=== PATIENT | female | born 1965 | race Caucasian/White ===

== ENCOUNTER → 2016-10-20 | Day surgery (SDC) | payer OTHER ==
[2016-10-13 13:44] VITALS: Ht 179.1 cm; Wt 140.9 kg
[~2016-10-20] VITALS: Ht 179.1 cm; Wt 140.9 kg
[~2016-10-20] MED LIST: LIDOCAINE HCL 2% 2 ML VIAL (20MG/ML) ONE; MELA1TAB5 PO; MIDAZOLAM HCL 1 MG/ML 2ML VIAL ONE; PROPOFOL IV EMULSION 10 MG/ML 20 ML VIAL IV ONE; SODIUM CHLORIDE 0.9% 500ML 500 ML IV ONE; TRAZ50TA35 PO
--- NOTE | 2016-10-20 09:49 | Endo History and Physical ---
History & Physical Date of Service: Oct 20, 2016. Chief Complaint: history of polyps Referring Physician: Dr. Ryan Ferro History of Present Illness History of serrated adenoma removed piecemeal. Past Medical History Other Past Surgical History Hx Cardiac Surgery: No Hx Internal Defibrillator: No Hx Pacemaker: No Hx Abdominal Surgery: Yes (ZAHRA, JOANNE, GASTRIC BYPASS) Hx of Implantable Prosthesis: No Hx Post-Op Nausea and Vomiting: No Hx Cancer Surgery: No Hx Thoracic Surgery: No Hx Orthopedic: No Hx Urinary Tract Surgery: No Family History None Social History Smoking Status: Current Some Day Smoker Hx Substance Use: No Hx Alcohol Use: Yes (OCCASSIONALLY) Allergies Coded Allergies: Aspirin (Verified Allergy, Mild, BLEEDING,STOMACH PAINS, 10/13/16) Meperidine (Verified Adverse Reaction, Unknown, SEVERE N/V, 10/13/16) Current Medications Reported Home Medications Medications Dose Route/Sig Max Daily Dose Days Date Category Kp Melatonin (Melatonin) 3 Mg Tab 1 Tab PO HS PRN 30 10/20/16 Reported Trazodone (Trazodone HCl) 50 Mg Tab 50 Mg PO HS 10/13/16 Reported Vital Signs Weight (Kilograms): 140.91 Height (Feet): 5 Height (Inches): 10.5 Date Time Temp Pulse Resp B/P Pulse Ox O2 Delivery O2 Flow Rate FiO2 10/20/16 09:27 121/59 10/20/16 09:22 36.8 66 20 182/80 97 Room Air Physical Exam General Appearance: WD/WN, no apparent distress, + obese Respiratory/Chest: Auscultation: breath sounds normal, no rales/crackles Cardiovascular: Heart Auscultation: RRR, no murmurs Abdomen: Inspection & Palpation: soft, no tenderness, guarding & rebound Assessment and Plan Colonoscopy today.
--- NOTE | 2016-10-20 10:22 | GI REPORT ---
Procedure Date: 10/20/2016 9:34 AM Procedure: Colonoscopy Indications: High risk colon cancer surveillance: Personal history of sessile serrated colon polyp (10 mm or greater in size), Last colonoscopy: May 2015 Medicines: Monitored Anesthesia Care Complications: No immediate complications. Estimated blood loss: None. Estimated Blood Loss: Estimated blood loss: none. Procedure: Pre-Anesthesia Assessment: - Prior to the procedure, a History and Physical was performed, and patient medications, allergies and sensitivities were reviewed. The patient's tolerance of previous anesthesia was reviewed. - ASA Grade Assessment: III - A patient with severe systemic disease. After I obtained informed consent, the scope was passed under direct vision. Throughout the procedure, the patient's blood pressure, pulse, and oxygen saturations were monitored continuously. The scope was introduced through the anus and advanced to the terminal ileum, with identification of the appendiceal orifice and IC valve. The colonoscopy was performed with ease. The patient tolerated the procedure well. The quality of the bowel preparation was good. The bowel preparation used was split dose MIralax. Findings: A 2 mm polyp was found in the cecum. The polyp was sessile. The polyp was removed with a cold snare. Resection and retrieval were complete. A 3 mm polyp was found in the transverse colon. The polyp was sessile. The polyp was removed with a cold snare. Resection and retrieval were complete. A 2 mm polyp was found in the sigmoid colon. The polyp was sessile. The polyp was removed with a cold snare. Resection and retrieval were complete. A tattoo was seen in the transverse colon. A post-polypectomy scar was found at the tattoo site. Verification of patient identification for the specimens was done by the physician and nurse using the patient's name, date and medical record number. Impression: - One 2 mm polyp in the cecum, removed with a cold snare. Resected and retrieved. - One 3 mm polyp in the transverse colon, removed with a cold snare. Resected and retrieved. - One 2 mm polyp in the sigmoid colon, removed with a cold snare. Resected and retrieved. - A tattoo was seen in the transverse colon. A post-polypectomy scar was found at the tattoo site. - The colon was otherwise normal to the terminal ileum with retroflexed views of the colon and terminal ileum. Recommendation: - Repeat colonoscopy in 3 years for surveillance based on pathology results. - Discharge patient to home (with escort). Octavio Saha M.D. Octavio Saha MD 10/20/2016 10:22:51 AM This report has been signed electronically. Note Initiated On: 10/20/2016 9:34 AM I attest to the content of the Intraoperative Record and orders documented therein, exceptions below
--- NOTE | 2016-10-20 10:24 | Discharge Instructions ---
Endoscopy Patient Instructions Date / Procedure(s) Performed Oct 20, 2016. Colonoscopy Allergy Information Coded Allergies: Aspirin (Verified Allergy, Mild, BLEEDING,STOMACH PAINS, 10/13/16) Meperidine (Verified Adverse Reaction, Unknown, SEVERE N/V, 10/13/16) Discharge Date / Findings Oct 20, 2016. Small colon polyps removed (3) Medication Instructions Restart Stopped Medication(s): Resume all medications Provider Instructions Activity Restrictions - No exercising or heavy lifting for 24 hours. - Do not drink alcohol the day of the procedure. - Do not drive a car or operate machinery until the day after the procedure. - Do not make any important decisions or sign important papers in 24 hours after the procedure. Following Day: - Return to full activity which may include returning to work/school. Diet Start your diet with liquids and light foods (jello, soup, juice, toast). Then eat your usual diet if not nauseated. Treatment For Common After Affects For mild abdominal pain, bloating, or excessive gas: - Rest - Eat lightly - Lie on right side Follow-Up Information Follow-up with Dr. Ryan Ferro as scheduled Anesthesia Information What You Should Know You have had a procedure that required some medicine to reduce anxiety and discomfort. This treatment is called moderate sedation. After receiving the treatment, you may be sleepy, but you will be able to breathe on your own. The effects of the treatment may last for several hours. Follow these instructions along with Activity/Diet recommendations noted above: * Do NOT do anything where dizziness or clumsiness would be dangerous. * Rest quietly at home today, then you can be up and about tomorrow. * Have a responsible person stay with you the rest of today. * You may have had an I.V. today. If so, you may take the dressing off later today. Recommendations Call your doctor if: * Trouble breathing * Continuous vomiting for more than 24 hours * Temperature above 101 degrees * Severe abdominal pain or bloating * Pain not relieved by pain medicine ordered * There is increased drainage or redness from any incision * A large amount of rectal bleeding greater than 2-3 tablespoons. (If you had a polyp/s removed or have hemorrhoids, a small amount of blood - from the rectum is to be expected.) * You have any unanswered questions or concerns. IN THE EVENT OF A SERIOUS EMERGENCY, GO TO THE NEAREST EMERGENCY ROOM Your discharge instructions were prepared by provider Octavio Saha. Patient Instructions Signature Page Linda Barrera Patient (or Guardian) Signature/Date: I have read and understand the instructions given to me by my caregivers. Caregiver/RN/Doctor Signature/Date: The above-named patient and/or guardian has received patient instructions on this date. + Original Patient Signature Page (only) stays with chart. Please make copy for patient.
--- NOTE | 2016-10-20 10:52 | Anesthesiology Progress Note ---
Anesthesia Post Op Note Date & Time Oct 20, 2016 at 10:52 Vital Signs Pain Intensity: 0 Vital Signs Past 12 Hours Date Time Temp Pulse Resp B/P Pulse Ox O2 Delivery O2 Flow Rate FiO2 10/20/16 10:38 58 20 104/61 97 Room Air 10/20/16 10:25 65 20 99/58 97 Room Air 10/20/16 09:27 121/59 10/20/16 09:22 36.8 66 20 182/80 97 Room Air Notes Mental Status: alert / awake / arousable, participated in evaluation Pt Amnestic to Procedure: Yes Nausea / Vomiting: adequately controlled Pain: adequately controlled Airway Patency, RR, SpO2: stable & adequate BP & HR: stable & adequate Hydration State: stable & adequate Anesthetic Complications: no major complications apparent
[2016-10-20 10:57] VITALS: BP 142/58; PULSE 54; O2SAT 98
== END | disposition home or self-care (01) ==
LOC: C.GI 08:43
PROVIDERS: ATTEND Internal Medicine Gastroenterology
DX: Z12.11 Encounter for screening for malignant neoplasm of colon (principal); Z86.010 Personal history of colon polyps; D12.0 Benign neoplasm of cecum; D12.3 Benign neoplasm of transverse colon; D12.5 Benign neoplasm of sigmoid colon; Z98.84 Bariatric surgery status; Z98.890 Other specified postprocedural states; F17.210 Nicotine dependence, cigarettes, uncomplicated; Z88.8 Allergy status to other drugs, medicaments and biological substances

== ENCOUNTER 2017-07-30 11:11 | Inpatient (IN) | payer OTHER ==
[~2017-07-30] VITALS: Ht 180.3 cm; Wt 149.9 kg
[~2017-07-30 11:11] MED LIST changes: -LIDOCAINE HCL 2% 2 ML VIAL (20MG/ML) ONE; -MIDAZOLAM HCL 1 MG/ML 2ML VIAL ONE; -PROPOFOL IV EMULSION 10 MG/ML 20 ML VIAL IV ONE; -SODIUM CHLORIDE 0.9% 500ML 500 ML IV ONE
[2017-07-30] MEDS ORDERED: MULT-506 PO (11:40)
[2017-07-30] MEDS ORDERED: GLUC10007 PO (11:40)
[2017-07-30 11:46] LABS: BASO % 0.2 %; BASO ABS # 0.02 K/uL (0-0.2); COMPLETE YES; EOS % 1.1 %; HEMATOCRIT 28.2 % (37-47); IG% 0.4 %; LYMPH % 17.4 %; LYMPH ABS # 1.49 K/uL (1.2-3.4); MEAN CELL VOLUME 93.1 fL (80-100); MEAN CORPUSCULAR HGB CONC 32.3 g/dl (32-36); MEAN PLATELET VOLUME 10.7 fL (7.4-10.4); MONO % 6.2 %; NEUT % 74.7 %; PLATELET COUNT 260 K/uL (130-400); RED BLOOD COUNT 3.03 M/uL (4.2-5.4); WHITE BLOOD COUNT 8.55 K/uL (4.8-10.8)
[2017-07-30] MEDS ORDERED: PANTOprazole INJ 40 MG in SYRINGE 0 ML IV ONE (12:00)
[2017-07-30 12:09] LABS: PARTIAL THROMBOPLASTIN RATIO 1.1; PROTHROMBIN TIME (PATIENT) 10.5 SECONDS (9.0-12.0)
--- NOTE | 2017-07-30 12:14 | History and Physical ---
History & Physical Date & Time of Service: Jul 30, 2017 at 12:14 Chief Complaint: Black Stool, Stomach Pain/Burning, Weak, Dizzy, N Primary Care Physician: Ryan Ferro M.D. History of Present Illness Source: patient Patient is a 52 yr female with PMH of Gastrojejunal Ulcer disease, colon Polys, Obesity S/P gastric Bypass, Insomnia, Seasonal allergies and other problems presents with history of black tarry stools since Tuesday. Reports having 1-2 BMs which are dark but denies any bright red blood or diarrhea. Reports associated Epigastric abdominal pain which is 5/10, non radiating, burning like , which worsens with food intake and temporarily improves with cold water intake. She recently had flu like symptoms and admits to take over the counter NSAIDs.She tried gaviscon and rolaids which did not relive her symptoms. She was previously on PPI but currently off them. Also reports some dizziness with ambulation. Currently denies any chest pain, SOB, nausea, vomiting, headache, dysuria, fever, chills. No history of being on blood thinners, aspirin. Reports that she follows with solar design engineer and gets colonoscopy as she had colonic polyps. Past Medical/Surgical History Medical Problems: (1) Anxiety Status: Chronic (2) Gastrointestinal ulcer Status: Resolved (3) GI bleed Status: Resolved (4) Osteoarthritis Status: Chronic Surgical Problems: (1) Gastric bypass status for obesity Status: Resolved Family History Mother:: DM II, Dementia Father: DM II Social History Smoking Status: Former Smoker (quit 2013) Alcohol Use: socially Drug Use: none Immunizations History of Influenza Vaccine: No History of Tetanus Vaccine?: Yes Tetanus Immunization Date: Apr 20, 2005 History of Pneumococcal: No History of Hepatitis B Vaccine: Yes Multi-Drug Resistant Organisms History of MDRO: No Allergies Coded Allergies: Aspirin (Verified Allergy, Mild, BLEEDING,STOMACH PAINS, 10/13/16) Meperidine (Verified Adverse Reaction, Unknown, SEVERE N/V, 10/13/16) Home Medications Scheduled Glucosamine Sulfate (Glucosamine), 1,000 MG PO DAILY Multivitamin (Multivitamin), 1 TAB PO DAILY Trazodone Hcl (Trazodone), 50 MG PO HS Review of Systems See HPI for pertinent positives & negatives. A total of 10 systems reviewed and were otherwise negative. Physical Exam Vital Signs Date Time Temp Pulse Resp B/P (MAP) Pulse Ox O2 Delivery O2 Flow Rate FiO2 07/30/17 11:38 82 07/30/17 11:30 97 Room Air 07/30/17 11:15 36.7 88 18 118/69 97 Room Air General Appearance: no apparent distress, + obese Head: normocephalic, atraumatic Eyes: normal inspection, PERRL, EOMI, sclerae normal ENT: normal ENT inspection, hearing grossly normal Neck: supple, trachea midline Respiratory/Chest: chest non-tender, lungs clear, normal breath sounds, no respiratory distress, no accessory muscle use Cardiovascular: regular rate, rhythm, no edema, no murmur Abdomen/GI: normal bowel sounds, soft, + tenderness (Epigastric region), + pertinent finding (Obese, Surgical scars on abdomen noted) Back: normal inspection, + pertinent finding (Lower back mild tender) Extremities/Musculoskelatal: normal inspection, no pedal edema Neurologic/Psych: mainframe analyst II-XII nml as tested, no motor/sensory deficits, alert, normal mood/affect, oriented x 3 Skin: normal color, warm/dry Diagnostics Laboratory Results Results Past 24 Hours Test 07/30/17 11:27 Range/Units White Blood Count 8.55 4.8-10.8 K/uL Red Blood Count 3.03 4.2-5.4 M/uL Hemoglobin 9.1 12.0-16.0 g/dL Hematocrit 28.2 37-47 % Mean Corpuscular Volume 93.1 80-100 fL Mean Corpuscular Hemoglobin 30.0 25-34 pg Mean Corpuscular Hemoglobin Concent 32.3 32-36 g/dl Platelet Count 260 130-400 K/uL Mean Platelet Volume 10.7 7.4-10.4 fL Neutrophils (%) (Auto) 74.7 % Lymphocytes (%) (Auto) 17.4 % Monocytes (%) (Auto) 6.2 % Eosinophils (%) (Auto) 1.1 % Basophils (%) (Auto) 0.2 % Neutrophils # (Auto) 6.39 1.4-6.5 K/uL Lymphocytes # (Auto) 1.49 1.2-3.4 K/uL Monocytes # (Auto) 0.53 0.11-0.59 K/uL Eosinophils # (Auto) 0.09 0-0.5 K/uL Basophils # (Auto) 0.02 0-0.2 K/uL RDW Standard Deviation 48.0 36.4-46.3 fL RDW Coefficient of Variation 14.3 11.5-14.5 % Immature Granulocyte % (Auto) 0.4 % Immature Granulocyte # (Auto) 0.03 0.00-0.02 K/uL Prothrombin Time 10.5 9.0-12.0 SECONDS Prothromb Time International Ratio 1.0 0.9-1.1 Activated Partial Thromboplast Time 28.1 21.0-31.0 SECONDS Partial Thromboplastin Ratio 1.[address] ABD: pending Impression Assessment and Plan Upper GI bleeding: Presented with melena and epigastric abd pain, Hb:9.1 H/O Jejunal Ulcer, Colonic Polys Recent NSAIDs use Start on Protonix ggt IV fluids NPO for now Monitor H&H, transfuse PRBCs PRN pain control check CT ABD Lipase mildly elevated GI consulted Avoid NSAIDs, Aspirin Obesity S/P gastric Bypass BMI: 44.9 Insomnia: Hold Trazodone for now Seasonal allergies Stable DVT Px: SCDs: Re: Melena Code Status: Full Code Disposition: Monitor in Tele
[2017-07-30 12:15] LABS: CALCIUM 8.6 mg/dl (8.5-10.1); CREATININE 0.57 mg/dl (0.60-1.20); POTASSIUM 3.9 mmol/L (3.5-5.1)
--- NOTE | 2017-07-30 12:16 | EMERGENCY ROOM VISIT NOTE ---
History Report prepared by Abdoul: Danis Diego Under the Supervision of: Dr. Octavio Dee D.O. First contact with patient: 11:42 Chief Complaint: GI ASSESSMENT Stated Complaint: BLACK STOOL, STOMACH PAIN/BURNING, WEAK, DIZZY, N Nursing Triage Summary: Pt reports hx of GI bleed 7 yrs ago. Black stools for a couple days that became tarry today. Denies use of blood thinners. States she also has burning in her stomach. Pt reports dizziness/lightheadedness, SOB and tired. History of Present Illness The patient is a 52 year old female who presents to the Emergency Room with complaints of persistent "black, tarry" stool beginning three days ago. She also complains of abdominal pain, generalized weakness, and dizziness. She saw her PCP today for her symptoms, and was referred to the ED. The patient has a history of GI ulcers. Her most recent GI bleed was 7 years ago. Her most recent colonoscopy was 7 years ago as well. The patient is not on any blood thinning medication. She has a history of gastric bypass. She denies any leg swelling. Source of History: patient Onset: Three days ago Quality: other ("black, tarry" stool) Timing: other (persistent) Associated Symptoms: + abdominal pain, + weakness (generalized) Note: Additional symptoms: dizziness. The patient denies any leg swelling. Review of Systems See HPI for pertinent positives & negatives. A total of 10 systems reviewed and were otherwise negative. Past Medical & Surgical Medical Problems: (1) Anxiety (2) Gastrointestinal ulcer (3) GI bleed (4) Melena (5) Osteoarthritis Surgical Problems: (1) Gastric bypass status for obesity Family History No pertinent family history stated. Social History Smoking Status: Never Smoker Marital Status: Housing Status: lives with family Current/Historical Medications Scheduled Glucosamine Sulfate (Glucosamine), 1,000 MG PO DAILY Multivitamin (Multivitamin), 1 TAB PO DAILY Trazodone Hcl (Trazodone), 50 MG PO HS Allergies Coded Allergies: Aspirin (Verified Allergy, Mild, BLEEDING,STOMACH PAINS, 10/13/16) Meperidine (Verified Adverse Reaction, Unknown, SEVERE N/V, 10/13/16) Physical Exam Vital Signs Date Time Temp Pulse Resp B/P (MAP) Pulse Ox O2 Delivery O2 Flow Rate FiO2 07/30/17 12:26 72 18 131/55 98 Room Air 07/30/17 11:38 82 07/30/17 11:30 97 Room Air 07/30/17 11:15 36.7 88 18 118/69 97 Room Air Physical Exam GENERAL: Patient is awake, alert, and in no acute distress. Patient is resting comfortably and showing no signs of anxiety EYES: The conjunctivae are clear. The pupils are round and reactive. EARS, NOSE, MOUTH AND THROAT: The nose is without any evidence of any deformity. Mucous membranes are moist tongue is midline NECK: The neck is nontender and supple. RESPIRATORY: Normal respiratory effort is noted there is no evidence of wheezing rhonchi or rales CARDIOVASCULAR: Tachycardic but regular. No definite murmurs to auscultation. GASTROINTESTINAL: The abdomen is mildly distended, but soft. Epigastric tenderness to palpation. No guarding or rigidity. RECTAL: Black, heme positive stool. MUSCULOSKELETAL/EXTREMITIES: There is no evidence of gross deformity full range of motion is noted in the hips and shoulders SKIN: There is no obvious evidence of any rash. There are no petechiae, pallor or cyanosis noted. NEUROLOGIC: Patient is awake alert and oriented x3. Medical Decision & Procedures Laboratory Results 07/30/17 11:27 Red Blood Count 3.03, Mean Corpuscular Volume 93.1, Mean Corpuscular Hemoglobin 30.0, Mean Corpuscular Hemoglobin Concent 32.3, Mean Platelet Volume 10.7, Neutrophils (%) (Auto) 74.7, Lymphocytes (%) (Auto) 17.4, Monocytes (%) (Auto) 6.2, Eosinophils (%) (Auto) 1.1, Basophils (%) (Auto) 0.2, Neutrophils # (Auto) 6.39, Lymphocytes # (Auto) 1.49, Monocytes # (Auto) 0.53, Eosinophils # (Auto) 0.09, Basophils # (Auto) 0.02 07/30/17 11:27 Test 07/30/17 11:27 White Blood Count 8.55 K/uL (4.8-10.8) Red Blood Count 3.03 M/uL (4.2-5.4) Hemoglobin 9.1 g/dL (12.0-16.0) Hematocrit 28.2 % (37-47) Mean Corpuscular Volume 93.1 fL (80-100) Mean Corpuscular Hemoglobin 30.0 pg (25-34) Mean Corpuscular Hemoglobin Concent 32.3 g/dl (32-36) Platelet Count 260 K/uL (130-400) Mean Platelet Volume 10.7 fL (7.4-10.4) Neutrophils (%) (Auto) 74.7 % Lymphocytes (%) (Auto) 17.4 % Monocytes (%) (Auto) 6.2 % Eosinophils (%) (Auto) 1.1 % Basophils (%) (Auto) 0.2 % Neutrophils # (Auto) 6.39 K/uL (1.4-6.5) Lymphocytes # (Auto) 1.49 K/uL (1.2-3.4) Monocytes # (Auto) 0.53 K/uL (0.11-0.59) Eosinophils # (Auto) 0.09 K/uL (0-0.5) Basophils # (Auto) 0.02 K/uL (0-0.2) RDW Standard Deviation 48.0 fL (36.4-46.3) RDW Coefficient of Variation 14.3 % (11.5-14.5) Immature Granulocyte % (Auto) 0.4 % Immature Granulocyte # (Auto) 0.03 K/uL (0.00-0.02) Prothrombin Time 10.5 SECONDS (9.0-12.0) Prothromb Time International Ratio 1.0 (0.9-1.1) Activated Partial Thromboplast Time 28.1 SECONDS (21.0-31.0) Partial Thromboplastin Ratio 1.1 Anion Gap 6.0 mmol/L (3-11) Est Creatinine Clear Calc Drug Dose 183.7 ml/min Estimated GFR () 123.5 Estimated GFR (Non- 106.6 BUN/Creatinine Ratio 42.0 (10-20) Calcium Level 8.6 mg/dl (8.5-10.1) Total Bilirubin 0.5 mg/dl (0.2-1) Aspartate Amino Transf (AST/SGOT) 13 U/L (15-37) Alanine Aminotransferase (ALT/SGPT) 21 U/L (12-78) Alkaline Phosphatase 103 U/L (45-117) Total Protein 6.9 gm/dl (6.4-8.2) Albumin 3.2 gm/dl (3.4-5.0) Globulin 3.7 gm/dl (2.5-4.0) Albumin/Globulin Ratio 0.9 (0.9-2) Lipase 423 U/L (73-393) Laboratory results per my review. Medications Administered Medications (Trade) Dose Ordered Sig/Jeri Route Start Time Stop Time Status Last Admin Dose Admin Pantoprazole Sodium 40 mg/ Syringe 10 ml @ 5 mls/min NOW ONCE IV 07/30/17 12:00 07/30/17 12:01 DC 07/30/17 12:27 5 MLS/MIN ED Course 1148: The patient was evaluated in room A12B. A complete history and physical examination were performed. 1200: Ordered Pantoprazole Sodium 40 mg/Syringe 10 mL @ 5 mL/min IV. 1215: Upon reevaluation, the patient is resting comfortably. I discussed results and treatment plan with her. She verbalizes agreement and understanding. I spoke with Dr. Pina of [facility]. The patient will be evaluated for further management and care. Medical Decision Differential diagnosis: Etiologies such as diverticulosis, AVM, coagulopathy, colitis, inflammatory bowel disease, malignancy, Sherrie-Ann tear, esophagitis, peptic ulcer disease , variceal bleed, gastritis, epistaxis, fissure, hemorrhoids, as well as others were entertained. Nursing notes reviewed. The patient is a 52-year-old female who presented to the emergency apartment for an evaluation of generalized weakness and dark stools. The patient has noted that her stool has become dark and she's been having problems with generalized weakness. Her stool was heme positive. She has a history of duodenal ulcer in the past. The patient was treated with Protonix in the emergency department. I discussed the patient's laboratory studies with her. I discussed her case with the on-call [facility] hospitalist. They have agreed to evaluate the patient in the emergency apartment for further management and disposition. Medication Reconcilliation Current Medication List: was personally reviewed by me Blood Pressure Screening Patient's blood pressure: Normal blood pressure Blood pressure disposition: Did not require urgent referral Consults Time Called: 1205 [facility] Phys[facility] Returned Call: 1211 I discussed the patient's case with Dr. Pina. The patient will be evaluated for further management. Impression Primary Impression: Upper GI bleed Scribe Attestation The scribe's documentation has been prepared under my direction and personally reviewed by me in its entirety. I confirm that the note above accurately reflects all work, treatment, procedures, and medical decision making performed by me. Departure Information Dispostion Being Evaluated By Hospitalist Ryan Sarmiento M.D. (PCP) Patient Instructions [facility]
[2017-07-30 12:18] LABS: ALB/GLOB RATIO 0.9 (0.9-2)
[2017-07-30 13:15] VITALS: O2SAT 98; Ht 180.3 cm; Wt 149.9 kg
[2017-07-30] MEDS ORDERED: ONDANSETRON INJ 2 MG/ML 2 ML VIAL IV PRN (13:15)
[2017-07-30] MEDS ORDERED: PANTOprazole INJ 40 MG in DEXTROSE 5% 100ML IV SCH (13:45)
[2017-07-30 14:00] VITALS: BP 124/76; PULSE 98; TEMP 36.4; O2SAT 98
[2017-07-30] MEDS: SODIUM CHLORIDE 0.9% 1000ML 1,000 ML IV SCH ×2 (14:22→23:19)
[2017-07-30 15:14] VITALS: BP 96/46; PULSE 80; TEMP 36.4; O2SAT 100
[2017-07-30] MEDS ORDERED: INFLUENZA VIRUS QUAD VACCINE 0.5 ML SYR IM. ONE (16:00)
[2017-07-30] MEDS ORDERED: INFLUENZA ADMINISTRATION CHARGE ONE (16:00)
[2017-07-30 16:39] LABS: URINE APPEARANCE CLEAR (CLEAR); URINE BILIRUBIN NEG (NEG); URINE COLOR YELLOW; URINE NITRITE NEG (NEG); URINE SPECIFIC GRAVITY 1.029 (1.000-1.030); UROBILINOGEN NEG (NEG); ZZUR CULT IF INDIC CLEAN CATCH NO
--- NOTE | 2017-07-30 16:51 | DIAGNOSTIC IMAGING REPORT ---
CT OF THE ABDOMEN AND PELVIS WITHOUT CONTRAST CLINICAL HISTORY: Epigastric pain. Melena. COMPARISON STUDY: CT of the abdomen and pelvis April 20, 2010. TECHNIQUE: Axial images of the abdomen and pelvis were obtained without IV contrast. Images were reviewed in the axial, sagittal, and coronal planes. A dose lowering technique was utilized adhering to the principles of ALARA. FINDINGS: Evaluation of the abdomen and pelvis is suboptimal as unenhanced exam. Postsurgical findings involving the stomach are noted. There is no evidence for a bowel obstruction. Unenhanced images of the liver, spleen and adrenal glands are noted. There is equivocal minimal peripancreatic infiltration. There are no peripancreatic fluid collections. There is no hydronephrosis. The appendix is normal. Sensitivity for detection of mucosal lesions is significantly diminished on this unenhanced CT. No suspicious osseous lesion is present. There is no pneumatosis, free air or portal venous gas. IMPRESSION: 1. Equivocal minimal peripancreatic infiltration which could be correlated with biochemical evidence for acute pancreatitis. 2. Status post gastric bypass. No bowel obstruction. Normal appendix. Electronically signed by: Inderjit Dao M.D. 07/30/2017 4:50 PM Dictated Date/Time: 07/30/2017 4:41 PM
[2017-07-30 16:57] LABS: MANUAL MICROSCOPIC REQUIRED? NO; REVIEW REQ? NO
[2017-07-30 18:34] LABS: HEMATOCRIT 25.2 % (37-47)
[2017-07-30] MEDS: PANTOprazole INJ 40 MG in DEXTROSE 5% 100ML IV SCH ×2 (18:46→23:19)
[2017-07-30 19:18] VITALS: BP 99/44; PULSE 84; TEMP 36.4; O2SAT 96
--- NOTE | 2017-07-30 20:41 | GASTROINTESTINAL CONSULTATION ---
DATE OF CONSULTATION: 07/30/2017 CHIEF COMPLAINT: Dark stool. HISTORY OF PRESENT ILLNESS: The patient is a 52-year-old female presented to the Emergency Room for evaluation of dark stool and fatigue. The patient notes that the symptoms have been worsening over the past 3-5 days. She reported having 1-2 bowel movements of dark stool prior to admission. Since admission, she reports that her stools have now become black, sticky with a foul smell to it. She denies having fevers, chills, sweats or rigors. The patient does admit to taking nonsteroidals and a cold medicine which she was taking at home due to symptoms of sinus congestion and headache. The patient's history is notable for gastric bypass and prior history of an anastomotic ulcer. PAST MEDICAL HISTORY: 1. Anxiety. 2. Osteoarthritis. PAST SURGICAL HISTORY: Gastric bypass. FAMILY HISTORY: Diabetes, dementia in mother, diabetes in father. SOCIAL HISTORY: Prior smoker. Alcohol use, drinks 1-2 drinks per day. Denies drug use. ALLERGIES: ASPIRIN, MEPERIDINE. OUTPATIENT MEDICATIONS: 1. Glucosamine 1000 mg daily. 2. Multivitamin 1 tablet daily. 3. Trazodone 50 mg at bedtime. REVIEW OF SYSTEMS: CARDIAC: No chest pain, no palpitations. GENERAL: No fevers or chills today. PULMONARY: No shortness of breath or cough. GASTROINTESTINAL: Please see history of present illness. GENITOURINARY: No dysuria. PSYCHIATRIC: History of depression and anxiety. DERMATOLOGY: No rashes noted by patient. GENITOURINARY: No dysuria. HEENT: No difficulty swallowing noted. MUSCULOSKELETAL: No new joint pains or muscle pains. PHYSICAL EXAMINATION: VITAL SIGNS: Temperature 36.4, pulse 80, respiratory rate is 16, blood pressure is 94/46, pulse ox 100% on room air. HEENT: No scleral icterus noted. NECK: No JVD noted. LUNGS: Clear to auscultation. CARDIAC: Regular rate and rhythm. ABDOMEN: Obese, mild epigastric tenderness noted. No rebound or peritoneal signs. EXTREMITIES: Trace pitting edema. DERMATOLOGY: No rashes. No spider nevi noted. NEUROLOGIC: Cranial nerves grossly intact. Motor grossly intact. LABORATORIES: White blood cell count 8.5, hemoglobin 9.1, hematocrit 28.2 on admission, 25.2 on evaluation this evening and platelet count is 260. PT is 10.5, INR 1.0. Chemistries: Sodium 137, potassium is 3.9, chloride is 106, BUN 24, creatinine is 0.57. AST 13, ALT 21, alkaline phosphatase 103, lipase 423. IMPRESSION: A 52-year-old female presented with dark stool now what appears to be melena and a drop in her hematocrit and hemoglobin. Given this, she likely has a recurrent anastomotic ulcer and possible active gastrointestinal bleed. RECOMMENDATIONS: 1. N.p.o. 2. Upper endoscopy to be arranged. 3. Continue with Protonix drip as you are doing. 4. Avoid use of nonsteroidals. Please call with any questions or concerns overnight.
[2017-07-30 23:36] VITALS: BP 106/45; PULSE 82; TEMP 36.5; O2SAT 96
[2017-07-31] VITALS (8 sets, daily range): BP systolic 93–138; BP diastolic 45–69; PULSE 64–76; TEMP 36.3–36.8; O2SAT 95–100
[2017-07-31 00:20] LABS: HEMATOCRIT 24.8 % (37-47)
[2017-07-31] MEDS: PANTOprazole INJ 40 MG in DEXTROSE 5% 100ML IV SCH ×4 (04:15→20:06)
[2017-07-31 06:08] LABS: HEMATOCRIT 24.5 % (37-47); MEAN CELL VOLUME 92.8 fL (80-100); MEAN CORPUSCULAR HEMOGLOBIN 30.3 pg (25-34); MEAN CORPUSCULAR HGB CONC 32.7 g/dl (32-36); MEAN PLATELET VOLUME 10.3 fL (7.4-10.4); PLATELET COUNT 228 K/uL (130-400); RED BLOOD COUNT 2.64 M/uL (4.2-5.4); WHITE BLOOD COUNT 5.64 K/uL (4.8-10.8)
[2017-07-31 06:37] LABS: BUN/CREATININE RATIO 39.5 (10-20); CALCIUM 8.3 mg/dl (8.5-10.1); CREATININE 0.48 mg/dl (0.60-1.20); POTASSIUM 3.6 mmol/L (3.5-5.1)
[2017-07-31] MEDS ORDERED: FENTANYL CITRATE INJ 50 MCG/1 ML 2 ML VIAL ONE ×2 (07:56→09:24)
[2017-07-31] MEDS ORDERED: LIDOCAINE HCL 2% 2 ML VIAL (20MG/ML) ONE (07:56)
[2017-07-31] MEDS ORDERED: PROPOFOL IV EMULSION 10 MG/ML 20 ML VIAL IV ONE (07:56)
--- NOTE | 2017-07-31 08:19 | History & Physical Bridge Note ---
H&P Re-Evaluation Bridge Note: I have examined the patient, reviewed the History & Physical and in the interval since the performance of the History & Physical I have noted the following changes of clinical significance: No changes noted
--- NOTE | 2017-07-31 08:33 | Progress Note ---
Internal Med Progress Note Date of Service: Jul 31, 2017. Provider Documentation: SUBJECTIVE: Seen and examined at bedside Still has some brown to black colored BMs Epigastric pain is controlled Denies chest pain. SOB, dizziness On Protonix ggt Tolerating liquid diet Family at bedside OBJECTIVE: Vital Signs-as noted below General Appearance: no apparent distress, + obese Head: normocephalic, atraumatic Eyes: normal inspection, PERRL, EOMI, sclerae normal ENT: normal ENT inspection, hearing grossly normal Neck: supple, trachea midline Respiratory/Chest: chest non-tender, lungs clear, normal breath sounds, no respiratory distress, no accessory muscle use Cardiovascular: regular rate, rhythm, no edema, no murmur Abdomen/GI: normal bowel sounds, soft, + mild tende epigastric region, Obese, Surgical scars on abdomen Back: normal inspection, + Lower back mild tender Extremities/Musculoskelatal: normal inspection, no pedal edema 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 ASSESSMENT & PLAN: Upper GI bleeding: CT ABD suggestive of Acute Pancreatitis: Presented with melena and epigastric abd pain, Hb:9.1 H/O Jejunal Ulcer, Colonic Polys; Recent NSAIDs use S/P EGD: Anastomotic ulcer with visible vessel S/P epinephrine injection and Hemostatic clip placement Continue Protonix ggt for 3 days IV fluids Clear liquid diet Monitor H&H, transfuse PRBCs PRN pain control Appreciate GI input Lipase trending down Avoid NSAIDs, Aspirin Obesity S/P gastric Bypass BMI: 44.9 Insomnia: Hold Trazodone for now Seasonal allergies Stable DVT Px: SCDs: Re: Melena Code Status: Full Code Disposition: Monitor in Tele Vital Signs: Date Time Temp Pulse Resp B/P (MAP) Pulse Ox O2 Delivery O2 Flow Rate FiO2 07/31/17 12:00 36.5 64 16 109/47 (67) 99 07/31/17 12:00 Room Air 07/31/17 10:00 36.8 67 18 126/67 (86) 97 Room Air 07/31/17 09:45 36.2 63 16 107/78 96 Room Air 07/31/17 09:35 59 16 136/68 100 Oxymask 10 11/26/17 09:25 63 14 110/66 100 Oxymask 10 07/31/17 09:16 36.4 68 22 134/63 100 Oxymask 10 07/31/17 08:00 Room Air 07/31/17 07:58 36.3 76 18 119/57 96 Room Air 07/31/17 07:52 36.3 76 18 119/57 (77) 96 Room Air 07/31/17 04:21 36.6 68 16 93/45 (61) 96 Room Air 07/31/17 04:00 Room Air 07/31/17 00:00 Room Air 07/30/17 23:36 36.5 82 16 106/45 (65) 96 Room Air 07/30/17 20:00 Room Air 07/30/17 19:18 36.4 84 18 99/44 (62) 96 Room Air 07/30/17 16:00 Room Air 07/30/17 15:14 36.4 80 16 96/46 (63) 100 Room Air Lab Results: Results Past 24 Hours Test 07/30/17 16:20 07/30/17 18:20 07/31/17 00:06 07/31/17 05:53 Range/Units Urine Color YELLOW Urine Appearance CLEAR CLEAR Urine pH 5.0 4.5-7.5 Urine Specific [place] 1.029 1.000-1.030 Urine Protein NEG NEG Urine Glucose (UA) NEG NEG Urine Ketones NEG NEG Urine Occult Blood NEG NEG Urine Nitrite NEG NEG Urine Bilirubin NEG NEG Urine Urobilinogen NEG NEG Urine Leukocyte Esterase NEG NEG Hemoglobin 8.2 7.9 8.0 12.0-16.0 g/dL Hematocrit 25.2 24.8 24.5 37-47 % White Blood Count 5.64 4.8-10.8 K/uL Red Blood Count 2.64 4.2-5.4 M/uL Mean Corpuscular Volume 92.8 80-100 fL Mean Corpuscular Hemoglobin 30.3 25-34 pg Mean Corpuscular Hemoglobin Concent 32.7 32-36 g/dl RDW Standard Deviation 48.2 36.4-46.3 fL RDW Coefficient of Variation 14.4 11.5-14.5 % Platelet Count 228 130-400 K/uL Mean Platelet Volume 10.3 7.4-10.4 fL Sodium Level 141 136-145 mmol/L Potassium Level 3.6 3.5-5.1 mmol/L Chloride Level 106 98-107 mmol/L Carbon Dioxide Level 25 21-32 mmol/L Anion Gap 10.0 3-11 mmol/L Blood Urea Nitrogen 19 7-18 mg/dl Creatinine 0.48 0.60-1.20 mg/dl Est Creatinine Clear Calc Drug Dose 218.1 ml/min Estimated GFR () 130.7 Estimated GFR (Non- 112.8 BUN/Creatinine Ratio 39.5 10-20 Random Glucose 106 70-99 mg/dl Calcium Level 8.3 8.5-10.1 mg/dl Magnesium Level 2.0 1.8-2.4 mg/dl Lipase 405 73-393 U/L Test 07/31/17 11:46 Range/Units Hemoglobin 8.2 12.0-16.0 g/dL Hematocrit 25.3 37-47 %
[2017-07-31] MEDS ORDERED: KETAMINE HCL INJ 50 MG/ML 10 ML VIAL ONE (08:34)
[2017-07-31] MEDS ORDERED: MIDAZOLAM HCL 1 MG/ML 2ML VIAL ONE (08:34)
[2017-07-31] MEDS ORDERED: NALOXONE HCL 0.4 MG/1 ML VIAL/CARP IV PRN (09:00)
[2017-07-31] MEDS ORDERED: ONDANSETRON INJ 2 MG/ML 2 ML VIAL IV PRN (09:00)
[2017-07-31] MEDS ORDERED: EpHEDrine SULFATE INJ 50 MG/ML AMP IV PRN (09:00)
[2017-07-31] MEDS ORDERED: ATROPINE SULFATE 0.1 MG/ML 5ML SYR IV PRN (09:00)
[2017-07-31] MEDS ORDERED: LABETALOL HCL IV 5 MG/ML 20ML IV PRN (09:00)
[2017-07-31] MEDS ORDERED: FENTANYL CITRATE INJ 50 MCG/1 ML 2 ML VIAL IV PRN (09:00)
--- NOTE | 2017-07-31 09:18 | GI REPORT ---
Procedure Date: 07/31/2017 8:54 AM Procedure: Upper GI endoscopy Indications: Melena Medicines: General Anesthesia Complications: No immediate complications. Estimated blood loss: Minimal. Estimated Blood Loss: Estimated blood loss was minimal. Procedure: Pre-Anesthesia Assessment: - Prior to the procedure, a History and Physical was performed, and patient medications, allergies and sensitivities were reviewed. The patient's tolerance of previous anesthesia was reviewed. - The risks and benefits of the procedure and the sedation options and risks were discussed with the patient. All questions were answered and informed consent was obtained. - Patient identification and proposed procedure were verified prior to the procedure by the physician, the nurse and the chalk extruding machine operator. The procedure was verified in the procedure room. - Pre-procedure physical examination revealed no contraindications to sedation. - ASA Grade Assessment: IV - A patient with severe systemic disease that is a constant threat to life. - After reviewing the risks and benefits, the patient was deemed in satisfactory condition to undergo the procedure. - The anesthesia plan was to use general anesthesia. - Immediately prior to administration of medications, the patient was re-assessed for adequacy to receive sedatives. - The heart rate, respiratory rate, oxygen saturations, blood pressure, adequacy of pulmonary ventilation, and response to care were monitored throughout the procedure. - The physical status of the patient was re-assessed after the procedure. After obtaining informed consent, the endoscope was passed under direct vision. Throughout the procedure, the patient's blood pressure, pulse, and oxygen saturations were monitored continuously. The scope was introduced through the mouth, and advanced to the jejunum. The upper GI endoscopy was accomplished without difficulty. The patient tolerated the procedure well. Findings: The examined esophagus was normal. The Z-line was regular and was found 35 cm from the incisors. Evidence of a gastric bypass was found. A gastric pouch with a normal size was found. The staple line appeared intact. The gastrojejunal anastomosis was characterized by healthy appearing mucosa. This was traversed. A visble vessel with a small ulcer was seen in the efferent limb just distal to the anastomosis. The area was successfully injected with 2 mL of a 1:10,000 solution of epinephrine for hemostasis. One clip ([employer], MRI conditional) was successfully placed. Coagulation for hemostasis using 7 slovak bipolar probe was successful. There was no bleeding at the end of the procedure Impression: - Normal esophagus. - Z-line regular, 35 cm from the incisors. - Gastric bypass with a normal-sized pouch and intact staple line. - Visible vessel noted just past the anstomosis with a small ulcer adjacent to it. Injected with epinephrine. Hemostatic clip place and treated with bipolar cautery. - No specimens collected. Recommendation: - Return patient to [facility] for [facility] care. - Observe patient's clinical course following today's procedure with therapeutic intervention. - Continue Protonix (pantoprazole): 8 mg/hr IV by continuous infusion for 3 days. - May have a liquid diet today, then advance as tolerated. - If rebleeding occurs would refer for angiography. Juli Peña D.O. Juli Peña, DO 07/31/2017 9:17:47 AM This report has been signed electronically. Note Initiated On: 07/31/2017 8:54 AM I attest to the content of the Intraoperative Record and orders documented therein, exceptions below
--- NOTE | 2017-07-31 09:31 | [facility] Post Operative Brief Note ---
Immediate Operative Summary Operative Date Jul 31, 2017. Pre-Operative Diagnosis Melena Post-Operative Diagnosis Anastomotic ulcer with visible vessel Procedure(s) Performed Upper endoscopy Surgeon Dr. Peña Senior Product Development Scientist Surgeon(s) none Estimated Blood Loss 0 cc Findings Anastomotic ulcer with a visible vessel Specimens none per surgeon Anesthesia MAC Complication(s) None Disposition Recovery Room / PACU
--- NOTE | 2017-07-31 09:56 | Anesthesiology Progress Note ---
Anesthesia Post Op Note Date & Time Jul 31, 2017 at 09:56 Vital Signs Pain Intensity: 3 Vital Signs Past 12 Hours Date Time Temp Pulse Resp B/P (MAP) Pulse Ox O2 Delivery O2 Flow Rate FiO2 07/31/17 09:45 36.2 63 16 107/78 96 Room Air 07/31/17 09:35 59 16 136/68 100 Oxymask 10 07/31/17 09:25 63 14 110/66 100 Oxymask 10 07/31/17 09:16 36.4 68 22 134/63 100 Oxymask 10 07/31/17 08:00 Room Air 07/31/17 07:58 36.3 76 18 119/57 96 Room Air 07/31/17 07:52 36.3 76 18 119/57 (77) 96 Room Air 07/31/17 04:21 36.6 68 16 93/45 (61) 96 Room Air 07/31/17 04:00 Room Air 07/31/17 00:00 Room Air 07/30/17 23:36 36.5 82 16 106/45 (65) 96 Room Air Notes Mental Status: alert / awake / arousable, participated in evaluation Pt Amnestic to Procedure: Yes Nausea / Vomiting: adequately controlled Pain: adequately controlled Airway Patency, RR, SpO2: stable & adequate BP & HR: stable & adequate Hydration State: stable & adequate Anesthetic Complications: no major complications apparent
[2017-07-31] MEDS: SODIUM CHLORIDE 0.9% 1000ML 1,000 ML IV SCH ×2 (10:04→20:06)
[2017-07-31 12:04] LABS: HEMATOCRIT 25.3 % (37-47)
[2017-07-31] MEDS: MoRPHine SULFATE 2 MG/ML CARP IV PRN ×2 (13:15→19:59)
[2017-07-31 19:57] LABS: HEMATOCRIT 23.5 % (37-47)
[2017-08-01] VITALS (25 sets, daily range): BP systolic 90–129; BP diastolic 30–62; PULSE 60–96; TEMP 36.5–37; O2SAT 95–100
[2017-08-01] MEDS: PANTOprazole INJ 40 MG in DEXTROSE 5% 100ML IV SCH ×5 (00:34→21:31)
[2017-08-01] MEDS ORDERED: TRAZODONE HCL 50 MG TAB PO ONE (01:39)
[2017-08-01] MEDS: SODIUM CHLORIDE 0.9% 1000ML 1,000 ML IV SCH ×2 (05:44→17:36)
[2017-08-01 06:29] LABS: HEMATOCRIT 21.6 % (37-47); MEAN CELL VOLUME 93.5 fL (80-100); MEAN CORPUSCULAR HEMOGLOBIN 30.7 pg (25-34); MEAN CORPUSCULAR HGB CONC 32.9 g/dl (32-36); MEAN PLATELET VOLUME 10.8 fL (7.4-10.4); PLATELET COUNT 210 K/uL (130-400); RED BLOOD COUNT 2.31 M/uL (4.2-5.4); WHITE BLOOD COUNT 5.03 K/uL (4.8-10.8)
[2017-08-01 07:11] LABS: BUN/CREATININE RATIO 15.4 (10-20); CALCIUM 8.1 mg/dl (8.5-10.1); CREATININE 0.45 mg/dl (0.60-1.20); MAGNESIUM 2.1 mg/dl (1.8-2.4); POTASSIUM 3.4 mmol/L (3.5-5.1)
--- NOTE | 2017-08-01 09:17 | Progress Note ---
Internal Med Progress Note Date of Service: Aug 01, 2017. Provider Documentation: SUBJECTIVE: Seen and examined at bedside States abd pain is better Had 1 BM after procedure yesterday No BM today Has headache likely secondary to morphine Denies chest pain. SOB, dizziness On Protonix ggt Tolerating liquid diet Hb dropped to 7.1 today, patient hesitant for blood transfusions OBJECTIVE: Vital Signs-as noted below General Appearance: no apparent distress, + obese Head: normocephalic, atraumatic Eyes: normal inspection, PERRL, EOMI, sclerae normal ENT: normal ENT inspection, hearing grossly normal Neck: supple, trachea midline Respiratory/Chest: chest non-tender, lungs clear, normal breath sounds, no respiratory distress, no accessory muscle use Cardiovascular: regular rate, rhythm, no edema, no murmur Abdomen/GI: normal bowel sounds, soft, non tender, Obese, Surgical scars on abdomen Back: normal inspection, + Lower back mild tender Extremities/Musculoskelatal: normal inspection, no pedal edema 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 ASSESSMENT & PLAN: Upper GI bleeding: CT ABD suggestive of Acute Pancreatitis: Presented with melena and epigastric abd pain, Hb:9.1 H/O Jejunal Ulcer, Colonic Polys; Recent NSAIDs use S/P EGD: Anastomotic ulcer with visible vessel S/P epinephrine injection and Hemostatic clip placement on 07/21/17 Continue Protonix ggt IV fluids Clear liquid diet Monitor H&H, transfuse PRBCs PRN Patient hesitant about blood transfusion (She would like to discuss with and decide) pain is controlled Appreciate GI input Lipase normalized Avoid NSAIDs, Aspirin Headache: Likely related to morphine Monitor Hypokalemia: Replace and monitor Obesity S/P gastric Bypass BMI: 44.9 Insomnia: Hold Trazodone for now Seasonal allergies Stable DVT Px: SCDs: Re: Melena Code Status: Full Code Disposition: Monitor in Tele Vital Signs: Date Time Temp Pulse Resp B/P (MAP) Pulse Ox O2 Delivery O2 Flow Rate FiO2 08/01/17 07:58 36.8 96 18 108/50 (69) 95 Room Air 08/01/17 04:00 Room Air 08/01/17 03:42 36.7 70 19 105/34 (57) 96 Room Air 08/01/17 00:00 Room Air 07/31/17 23:38 36.7 71 19 96/52 (67) 95 Room Air 07/31/17 20:00 Room Air 07/31/17 18:57 36.6 65 18 123/50 (74) 99 Room Air 07/31/17 16:00 Room Air 07/31/17 15:50 36.6 71 18 138/69 (92) 100 Room Air 07/31/17 12:00 36.5 64 16 109/47 (67) 99 07/31/17 12:00 Room Air 07/31/17 10:00 36.8 67 18 126/67 (86) 97 Room Air 07/31/17 09:45 36.2 63 16 107/78 96 Room Air 07/31/17 09:35 59 16 136/68 100 Oxymask 10 07/31/17 09:25 63 14 110/66 100 Oxymask 10 07/31/17 09:16 36.4 68 22 134/63 100 Oxymask 10 Lab Results: Results Past 24 Hours Test 07/31/17 11:46 07/31/17 19:42 08/01/17 05:35 Range/Units Hemoglobin 8.2 7.6 7.1 12.0-16.0 g/dL Hematocrit 25.3 23.5 21.6 37-47 % White Blood Count 5.03 4.8-10.8 K/uL Red Blood Count 2.31 4.2-5.4 M/uL Mean Corpuscular Volume 93.5 80-100 fL Mean Corpuscular Hemoglobin 30.7 25-34 pg Mean Corpuscular Hemoglobin Concent 32.9 32-36 g/dl RDW Standard Deviation 48.6 36.4-46.3 fL RDW Coefficient of Variation 14.3 11.5-14.5 % Platelet Count 210 130-400 K/uL Mean Platelet Volume 10.8 7.4-10.4 fL Sodium Level 139 136-145 mmol/L Potassium Level 3.4 3.5-5.1 mmol/L Chloride Level 108 98-107 mmol/L Carbon Dioxide Level 25 21-32 mmol/L Anion Gap 6.0 3-11 mmol/L Blood Urea Nitrogen 7 7-18 mg/dl Creatinine 0.45 0.60-1.20 mg/dl Est Creatinine Clear Calc Drug Dose 233.3 ml/min Estimated GFR () 133.5 Estimated GFR (Non- 115.2 BUN/Creatinine Ratio 15.4 10-20 Random Glucose 106 70-99 mg/dl Calcium Level 8.1 8.5-10.1 mg/dl Magnesium Level 2.1 1.8-2.4 mg/dl Lipase 311 73-393 U/L Chemistry Specimen Hemolysis
[2017-08-01] MEDS ORDERED: POTASSIUM CHLORIDE 10 MEQ TABCR PO ONE (09:30)
[2017-08-01 13:17] LABS: HEMATOCRIT 21.5 % (37-47)
--- NOTE | 2017-08-01 13:19 | Gastroenterology Progress Note ---
Progress Note Date of Service: Aug 01, 2017 Subjective Pt evaluation today including: conversation w/ patient, physical exam, chart review, lab review, review of inpatient medication list Pt reports still having dark liquid stool last one yesterday afternoon. Hgb around 7, denies any abd pain, n/v. Review of Systems Constitutional: No fever, No chills Respiratory: No cough, No shortness of breath Abdomen: + see HPI, No pain, No nausea, No vomiting Medications Current Inpatient Medications Medications (Trade) Dose Ordered Sig/Jeri Route Start Time Stop Time Status Last Admin Dose Admin Sodium Chloride 1,000 ml @ 75 mls/hr [id number] IV 07/30/17 13:45 08/29/17 13:44 08/01/17 05:44 100 MLS/HR Ondansetron HCl (Zofran Inj) 4 mg Q6H PRN IV 07/30/17 13:15 08/29/17 13:14 Pantoprazole Sodium 40 mg/ Dextrose 100 ml @ 20 mls/hr Q5H IV 07/30/17 18:45 08/29/17 18:44 08/01/17 11:25 20 MLS/HR Trazodone HCl (Desyrel Tab) 50 mg HS PO 08/01/17 21:00 08/31/17 20:59 Tramadol HCl (Ultram Tab) 50 mg Q4H PRN PO 08/01/17 09:15 08/31/17 09:14 Objective Vital Signs Date Time Temp Pulse Resp B/P (MAP) Pulse Ox O2 Delivery O2 Flow Rate FiO2 08/01/17 11:49 37.0 65 18 111/62 (78) 100 08/01/17 08:00 97 Room Air 08/01/17 07:58 36.8 96 18 108/50 (69) 95 Room Air 08/01/17 04:00 Room Air 08/01/17 03:42 36.7 70 19 105/34 (57) 96 Room Air 08/01/17 00:00 Room Air 07/31/17 23:38 36.7 71 19 96/52 (67) 95 Room Air 07/31/17 20:00 Room Air 07/31/17 18:57 36.6 65 18 123/50 (74) 99 Room Air 07/31/17 16:00 Room Air 07/31/17 15:50 36.6 71 18 138/69 (92) 100 Room Air Physical Exam General Appearance: WD/WN, no apparent distress, + obese Eyes: normal inspection, PERRL, EOMI Neck: supple, no JVD, trachea midline Respiratory/Chest: normal breath sounds, no respiratory distress, no accessory muscle use Cardiovascular: regular rate, rhythm, no gallop, no murmur Abdomen: normal bowel sounds, non tender, soft Extremities: normal inspection, no pedal edema, no calf tenderness Neurologic/Psych: alert, normal mood/affect, oriented x 3 Skin: normal color, no jaundice, no rash Laboratory Results Last 24 Hours Test 07/31/17 19:42 08/01/17 05:35 08/01/17 12:53 Hemoglobin 7.6 g/dL 7.1 g/dL Hematocrit 23.5 % 21.6 % White Blood Count 5.03 K/uL Red Blood Count 2.31 M/uL Mean Corpuscular Volume 93.5 fL Mean Corpuscular Hemoglobin 30.7 pg Mean Corpuscular Hemoglobin Concent 32.9 g/dl RDW Standard Deviation 48.6 fL RDW Coefficient of Variation 14.3 % Platelet Count 210 K/uL Mean Platelet Volume 10.8 fL Sodium Level 139 mmol/L Potassium Level 3.4 mmol/L Chloride Level 108 mmol/L Carbon Dioxide Level 25 mmol/L Anion Gap 6.0 mmol/L Blood Urea Nitrogen 7 mg/dl Creatinine 0.45 mg/dl Est Creatinine Clear Calc Drug Dose 233.3 ml/min Estimated GFR () 133.5 Estimated GFR (Non- 115.2 BUN/Creatinine Ratio 15.4 Random Glucose 106 mg/dl Calcium Level 8.1 mg/dl Magnesium Level 2.1 mg/dl Lipase 311 U/L Chemistry Specimen Hemolysis Assessment and Plan Pt is a 52 y/o female with melena, anemia. Hx of gastric bypass, found to have anastomotic ulcer during EGD exam yesterday - injected w epinephrine, clipped, cauterized. Hgb similar at 7 since yesterday. Hx of tobacco use, recently taking OTC cold meds containing NSAIDs. She had last BM yesterday afternoon - still melanotic. - Monitor H/H and transfuse prn - PPI gtt x 3 days total then transition to PPI PO BID dosing. - Tobacco cessation, avoidance of NSAIDs, ASA, ETOH recommended. - Advanced to [place] diet by end of day Attg add: I interviewed and examined pt, reviewed chart and labs, agree with above. Pt with anast ulcer /sp endoscopic therapy with stable hgb, although still reports dark stool. Cont to follow hgb daily; will repeat EGD if Hgb drops by more than 2. Plan transfusion if hgb falls below 7.
[2017-08-01 19:59] LABS: HEMATOCRIT 23.6 % (37-47)
[2017-08-01] MEDS: TRAZODONE HCL 50 MG TAB PO SCH (21:31)
[2017-08-02] VITALS (7 sets, daily range): BP systolic 108–135; BP diastolic 40–67; PULSE 60–69; TEMP 36.5–37.2; O2SAT 96–100
[2017-08-02 00:33] LABS: HEMATOCRIT 23.1 % (37-47)
[2017-08-02] MEDS: TRAMADOL HCL 50 MG TAB PO PRN (01:05)
[2017-08-02] MEDS ORDERED: LORAZEPAM 0.5 MG TAB PO PRN (01:15)
[2017-08-02] MEDS: PANTOprazole INJ 40 MG in DEXTROSE 5% 100ML IV SCH ×4 (02:04→16:14)
[2017-08-02] MEDS: SODIUM CHLORIDE 0.9% 1000ML 1,000 ML IV SCH ×2 (06:19→19:43)
[2017-08-02 06:51] LABS: HEMATOCRIT 24.2 % (37-47); MEAN CORPUSCULAR HEMOGLOBIN 29.7 pg (25-34); MEAN CORPUSCULAR HGB CONC 32.2 g/dl (32-36); MEAN PLATELET VOLUME 10.6 fL (7.4-10.4); PLATELET COUNT 242 K/uL (130-400); RED BLOOD COUNT 2.63 M/uL (4.2-5.4); WHITE BLOOD COUNT 4.62 K/uL (4.8-10.8)
[2017-08-02 07:23] LABS: BUN/CREATININE RATIO 10.9 (10-20); CALCIUM 8.4 mg/dl (8.5-10.1); CREATININE 0.49 mg/dl (0.60-1.20); MAGNESIUM 2.1 mg/dl (1.8-2.4); POTASSIUM 3.3 mmol/L (3.5-5.1)
[2017-08-02] MEDS ORDERED: POTASSIUM CHLORIDE 10 MEQ TABCR PO ONE (09:00)
--- NOTE | 2017-08-02 11:35 | Gastroenterology Progress Note ---
Progress Note Date of Service: Aug 02, 2017 Subjective Pt evaluation today including: conversation w/ patient, physical exam, chart review, lab review, review of studies, review of inpatient medication list Ms. Barrera is a 52 yr old female S/P gastric bypass who presented with melena, anemia. EGD on 07/31 with an anastomotic ulcer, Protonix drip since 07/30. Today Hb 7.8, after 1 RBC yesterday. Most recent BM was Tuesday. No abdominal pain. Review of Systems Constitutional: No fever Respiratory: No cough Cardiac: No chest pain Abdomen: No pain, No nausea, No vomiting, No diarrhea, No constipation, No GI bleeding Female : No dysuria Neuro: No memory loss Psych: No depression symptoms Heme: No abnormal bleeding/bruising Skin: No rash Medications Current Inpatient Medications Medications (Trade) Dose Ordered Sig/Jeri Route Start Time Stop Time Status Last Admin Dose Admin Sodium Chloride 1,000 ml @ 75 mls/hr [id number] IV 07/30/17 13:45 08/29/17 13:44 08/02/17 06:19 75 MLS/HR Ondansetron HCl (Zofran Inj) 4 mg Q6H PRN IV 07/30/17 13:15 08/29/17 13:14 Pantoprazole Sodium 40 mg/ Dextrose 100 ml @ 20 mls/hr Q5H IV 07/30/17 18:45 08/29/17 18:44 08/02/17 09:18 20 MLS/HR Trazodone HCl (Desyrel Tab) 50 mg HS PO 08/01/17 21:00 08/31/17 20:59 08/01/17 21:31 50 MG Tramadol HCl (Ultram Tab) 50 mg Q4H PRN PO 08/01/17 09:15 08/31/17 09:14 08/02/17 01:05 50 MG Lorazepam (Ativan Tab) 0.5 mg HS PRN PO 08/02/17 01:15 09/01/17 01:14 08/02/17 02:07 0.5 MG Objective Vital Signs Date Time Temp Pulse Resp B/P (MAP) Pulse Ox O2 Delivery O2 Flow Rate FiO2 08/02/17 08:00 97 Room Air 08/02/17 07:55 37.2 68 16 108/59 (75) 97 Room Air 08/02/17 04:00 Room Air 08/02/17 03:23 36.7 61 20 114/40 (64) 96 Room Air 08/02/17 00:01 Room Air 08/01/17 23:51 36.7 69 18 103/47 (65) 96 Room Air 08/01/17 20:00 Room Air 08/01/17 19:18 36.5 68 18 110/49 (69) 97 Room Air 08/01/17 16:00 Room Air 08/01/17 15:31 36.7 67 23 129/54 (79) 100 08/01/17 15:30 36.7 67 23 124/54 100 08/01/17 15:25 69 17 99 08/01/17 15:16 64 22 90/42 (58) 100 08/01/17 15:15 36.8 64 20 90/42 (58) 100 Room Air 08/01/17 15:15 64 22 90/42 100 08/01/17 15:10 65 15 100 08/01/17 15:01 60 14 112/52 (72) 100 08/01/17 15:00 36.7 65 16 112/52 100 08/01/17 14:55 67 14 99 08/01/17 14:51 67 20 119/59 (79) 99 08/01/17 14:44 36.7 70 20 104/52 100 08/01/17 14:40 67 20 100 08/01/17 14:31 36.6 70 21 104/52 (69) 100 08/01/17 14:31 36.7 70 21 104/52 100 08/01/17 14:30 68 18 100 08/01/17 14:19 72 13 102/61 (75) 100 08/01/17 14:19 72 16 102/61 100 08/01/17 14:17 75 19 99/49 (66) 99 08/01/17 14:15 72 16 100 08/01/17 14:11 36.7 68 19 118/30 (59) 100 Room Air 08/01/17 14:11 36.7 68 19 118/30 100 08/01/17 14:00 67 08/01/17 12:00 Room Air 08/01/17 11:49 37.0 65 18 111/62 (78) 100 Physical Exam General Appearance: no apparent distress ENT: pharynx normal Neck: supple, thyroid normal, no JVD Respiratory/Chest: lungs clear Cardiovascular: regular rate, rhythm, no JVD, no murmur Abdomen: non tender, soft Extremities: non-tender Neurologic/Psych: alert, normal mood/affect, oriented x 3 Skin: normal color, no jaundice, no rash Laboratory Results Last 24 Hours Test 08/01/17 12:53 08/01/17 19:48 08/02/17 00:18 08/02/17 05:41 Hemoglobin 7.0 g/dL 7.7 g/dL 7.5 g/dL 7.8 g/dL Hematocrit 21.5 % 23.6 % 23.1 % 24.2 % White Blood Count 4.62 K/uL Red Blood Count 2.63 M/uL Mean Corpuscular Volume 92.0 fL Mean Corpuscular Hemoglobin 29.7 pg Mean Corpuscular Hemoglobin Concent 32.2 g/dl RDW Standard Deviation 51.4 fL RDW Coefficient of Variation 15.2 % Platelet Count 242 K/uL Mean Platelet Volume 10.6 fL Sodium Level 142 mmol/L Potassium Level 3.3 mmol/L Chloride Level 111 mmol/L Carbon Dioxide Level 25 mmol/L Anion Gap 6.0 mmol/L Blood Urea Nitrogen 5 mg/dl Creatinine 0.49 mg/dl Est Creatinine Clear Calc Drug Dose 215.5 ml/min Estimated GFR () 129.8 Estimated GFR (Non- 112.0 BUN/Creatinine Ratio 10.9 Random Glucose 93 mg/dl Calcium Level 8.4 mg/dl Magnesium Level 2.1 mg/dl Assessment and Plan Ms. Barrera is a 52 yr old female who is S/P gastric bypass with melena secondary to an anastomotic ulcer. Plan: 1. May change Protonix drip to po BID. Continue x 2 months then daily. 2. Advance diet. 3. Consider IV iron infusion and B12 injection prior to discharge. 4. GI will sign off. Attg add: I interviewed and examined pt, reviewed chart and labs. Pt s/p xfusion 1 U, but no clincal evidence of recurrent bleeding. PPI therapy as above, diet as tolerated. Would consider parenteral B12 injection and iron infusion prior to d/c, given her malabsorption. Will schedule repeat EGD in [address] Peña. please call with questions.
--- NOTE | 2017-08-02 17:58 | Progress Note ---
Medicine Progress Note Date & Time of Visit: Aug 02, 2017 at 17:52. Subjective patient seen resting in bedside chair, comfortable no BM yet denies abdominal pain denies chest pain, dyspnea, dizziness, palpitations tolerating full liquids denies other symptoms Objective Last 8 Hrs Date Time Temp Pulse Resp B/P (MAP) Pulse Ox O2 Delivery O2 Flow Rate FiO2 08/02/17 15:40 36.6 60 18 118/48 (71) 100 Room Air 08/02/17 12:00 Room Air 08/02/17 11:59 36.5 69 16 117/51 (73) 98 Room Air Physical Exam: General- oriented x 3, not in distress, speaks in sentences with no effort Head- atraumatic Eyes- EOMI, anicteric ENT- oropharynx clear Neck- supple, no JVD, no adenopathy, no thyromegaly Lungs- clear breath sounds bilaterally Heart- regular rhythm; no murmur, normal rate Abdomen- normal bowel sounds, soft, nontender Extremities- no pretibial edema, no calf tenderness; peripheral pulses intact Neuro- alert, oriented x 3; no gross focal deficits Skin- warm & dry Laboratory Results: Last 24 Hours Test 08/01/17 19:48 08/02/17 00:18 08/02/17 05:41 Hemoglobin 7.7 g/dL 7.5 g/dL 7.8 g/dL Hematocrit 23.6 % 23.1 % 24.2 % White Blood Count 4.62 K/uL Red Blood Count 2.63 M/uL Mean Corpuscular Volume 92.0 fL Mean Corpuscular Hemoglobin 29.7 pg Mean Corpuscular Hemoglobin Concent 32.2 g/dl RDW Standard Deviation 51.4 fL RDW Coefficient of Variation 15.2 % Platelet Count 242 K/uL Mean Platelet Volume 10.6 fL Sodium Level 142 mmol/L Potassium Level 3.3 mmol/L Chloride Level 111 mmol/L Carbon Dioxide Level 25 mmol/L Anion Gap 6.0 mmol/L Blood Urea Nitrogen 5 mg/dl Creatinine 0.49 mg/dl Est Creatinine Clear Calc Drug Dose 215.5 ml/min Estimated GFR () 129.8 Estimated GFR (Non- 112.0 BUN/Creatinine Ratio 10.9 Random Glucose 93 mg/dl Calcium Level 8.4 mg/dl Magnesium Level 2.1 mg/dl Assessment & Plan Upper GI bleeding: CT ABD suggestive of Acute Pancreatitis: Presented with melena and epigastric abd pain, Hb:9.1 H/O Jejunal Ulcer, Colonic Polys; Recent NSAIDs use S/P EGD: Anastomotic ulcer with visible vessel S/P epinephrine injection and Hemostatic clip placement on 07/21/17 s/p 1 unit pRBC Hg 7.8 completed 3 days of Protonix drip will advance diet to mechanical soft repeat Hg tomorrow may need IV Iron, B12 prior to discharge GI recommendations noted and appreciated Headache: Likely related to morphine resolved Hypokalemia: Replace and monitor Obesity S/P gastric Bypass BMI: 44.9 Insomnia: Trazodone for now Seasonal allergies Stable DVT Px: SCDs: Re: Melena Code Status: Full Code Disposition: possible d/c home in AM Current Inpatient Medications: Current Inpatient Medications Medications (Trade) Dose Ordered Sig/Jeri Route Start Time Stop Time Status Last Admin Dose Admin Sodium Chloride 1,000 ml @ 75 mls/hr [id number] IV 07/30/17 13:45 08/29/17 13:44 08/02/17 06:19 75 MLS/HR Ondansetron HCl (Zofran Inj) 4 mg Q6H PRN IV 07/30/17 13:15 08/29/17 13:14 08/02/17 12:04 4 MG Pantoprazole Sodium 40 mg/ Dextrose 100 ml @ 20 mls/hr Q5H IV 07/30/17 18:45 08/29/17 18:44 08/02/17 16:14 20 MLS/HR Trazodone HCl (Desyrel Tab) 50 mg HS PO 08/01/17 21:00 08/31/17 20:59 08/01/17 21:31 50 MG Tramadol HCl (Ultram Tab) 50 mg Q4H PRN PO 08/01/17 09:15 08/31/17 09:14 08/02/17 01:05 50 MG Lorazepam (Ativan Tab) 0.5 mg HS PRN PO 08/02/17 01:15 09/01/17 01:14 08/02/17 02:07 0.5 MG
[2017-08-02] MEDS: PANTOprazole INJ 40 MG in SYRINGE 0 ML IV SCH (20:14)
[2017-08-02] MEDS: TRAZODONE HCL 50 MG TAB PO SCH (20:15)
[2017-08-03] VITALS (23 sets, daily range): BP systolic 92–140; BP diastolic 42–73; PULSE 58–87; TEMP 36.6–36.8; O2SAT 92–99
[2017-08-03] MEDS: TRAMADOL HCL 50 MG TAB PO PRN (00:39)
[2017-08-03 06:14] LABS: BASO % 0.7 %; BASO ABS # 0.03 K/uL (0-0.2); EOS % 4.3 %; HEMATOCRIT 22.9 % (37-47); IG% 0.2 %; LYMPH % 37.3 %; LYMPH ABS # 1.57 K/uL (1.2-3.4); MEAN CORPUSCULAR HEMOGLOBIN 29.7 pg (25-34); MEAN CORPUSCULAR HGB CONC 32.3 g/dl (32-36); MEAN PLATELET VOLUME 10.1 fL (7.4-10.4); MONO % 7.4 %; NEUT % 50.1 %; PLATELET COUNT 228 K/uL (130-400); RED BLOOD COUNT 2.49 M/uL (4.2-5.4); WHITE BLOOD COUNT 4.21 K/uL (4.8-10.8)
[2017-08-03 06:41] LABS: BUN/CREATININE RATIO 9.4 (10-20); CALCIUM 8.1 mg/dl (8.5-10.1); CREATININE 0.65 mg/dl (0.60-1.20); POTASSIUM 3.6 mmol/L (3.5-5.1)
[2017-08-03 06:45] LABS: COMPLETE YES; POLYCHROMASIA 1+
[2017-08-03] MEDS: PANTOprazole INJ 40 MG in SYRINGE 0 ML IV SCH ×2 (09:31→21:34)
[2017-08-03] MEDS: SODIUM CHLORIDE 0.9% 1000ML 1,000 ML IV SCH (09:31)
--- NOTE | 2017-08-03 12:56 | Gastroenterology Progress Note ---
Progress Note Date of Service: Aug 03, 2017 Subjective Pt evaluation today including: conversation w/ patient, physical exam, chart review, lab review, review of studies, review of inpatient medication list Ms. Barrera is a 52 yr old female S/P gastric bypass who presented with melena, anemia. EGD on 07/31 with an anastomotic ulcer (tx with bipolar probe, injected and visible vessel near was clipped). Protonix drip from 07/30 through 08/02. Now Protonix 40mg BID PO. Today Hb 7.4, down from 7.8 yesterday, after 1 RBC on 08/01. BMs Tuesday: one black. BM yesterday: one formed brown BM in the morning. No BMs since yesterday morning. Only abd pain was after drinking soda. Review of Systems Constitutional: No fever Respiratory: No cough Abdomen: + see HPI, + GI bleeding (see HPI), No nausea, No vomiting, No diarrhea, No constipation Female : No dysuria Neuro: No memory loss Heme: No abnormal bleeding/bruising Endo: No fatigue Medications Current Inpatient Medications Medications (Trade) Dose Ordered Sig/Jeri Route Start Time Stop Time Status Last Admin Dose Admin Sodium Chloride 1,000 ml @ 75 mls/hr [id number] IV 07/30/17 13:45 08/29/17 13:44 08/03/17 09:31 75 MLS/HR Ondansetron HCl (Zofran Inj) 4 mg Q6H PRN IV 07/30/17 13:15 08/29/17 13:14 08/02/17 12:04 4 MG Trazodone HCl (Desyrel Tab) 50 mg HS PO 08/01/17 21:00 08/31/17 20:59 08/02/17 20:15 50 MG Tramadol HCl (Ultram Tab) 50 mg Q4H PRN PO 08/01/17 09:15 08/31/17 09:14 08/03/17 00:39 50 MG Lorazepam (Ativan Tab) 0.5 mg HS PRN PO 08/02/17 01:15 09/01/17 01:14 08/02/17 02:07 0.5 MG Pantoprazole Sodium 40 mg/ Syringe 10 ml @ 5 mls/min DAILY@ IV 08/02/17 21:00 09/01/17 20:59 08/03/17 09:31 5 MLS/MIN Objective Vital Signs Date Time Temp Pulse Resp B/P (MAP) Pulse Ox O2 Delivery O2 Flow Rate FiO2 08/03/17 10:37 64 18 126/50 98 08/03/17 10:37 64 17 126/50 (75) 98 08/03/17 10:22 61 14 118/54 97 08/03/17 10:22 61 13 118/54 (75) 97 Room Air 08/03/17 10:07 36.7 60 17 120/52 97 08/03/17 10:07 36.7 60 17 120/52 (74) 97 Room Air 08/03/17 09:52 36.8 62 17 118/52 (74) 97 Room Air 08/03/17 09:52 36.7 66 20 118/57 97 08/03/17 08:00 97 Room Air 08/03/17 07:34 36.8 61 18 110/53 (72) 98 Room Air 08/03/17 04:10 98 Room Air 08/03/17 04:10 36.7 63 16 114/56 (75) 98 Room Air 08/03/17 00:00 98 Room Air 08/02/17 23:38 36.7 66 17 135/67 (89) 98 Room Air 08/02/17 20:00 Room Air 08/02/17 19:06 36.9 68 18 112/56 (74) 98 Room Air 08/02/17 16:00 Room Air 08/02/17 15:40 36.6 60 18 118/48 (71) 100 Room Air Physical Exam General Appearance: no apparent distress ENT: pharynx normal Neck: thyroid normal, no JVD Respiratory/Chest: lungs clear Cardiovascular: regular rate, rhythm, no JVD, no murmur Abdomen: non tender, soft Extremities: non-tender Neurologic/Psych: alert, normal mood/affect, oriented x 3 Skin: no jaundice, warm/dry Laboratory Results Last 24 Hours Test 08/03/17 05:46 White Blood Count 4.21 K/uL Red Blood Count 2.49 M/uL Hemoglobin 7.4 g/dL Hematocrit 22.9 % Mean Corpuscular Volume 92.0 fL Mean Corpuscular Hemoglobin 29.7 pg Mean Corpuscular Hemoglobin Concent 32.3 g/dl Platelet Count 228 K/uL Mean Platelet Volume 10.1 fL Neutrophils (%) (Auto) 50.1 % Lymphocytes (%) (Auto) 37.3 % Monocytes (%) (Auto) 7.4 % Eosinophils (%) (Auto) 4.3 % Basophils (%) (Auto) 0.7 % Neutrophils # (Auto) 2.11 K/uL Lymphocytes # (Auto) 1.57 K/uL Monocytes # (Auto) 0.31 K/uL Eosinophils # (Auto) 0.18 K/uL Basophils # (Auto) 0.03 K/uL RDW Standard Deviation 49.4 fL RDW Coefficient of Variation 14.7 % Immature Granulocyte % (Auto) 0.2 % Immature Granulocyte # (Auto) 0.01 K/uL Polychromasia 1+ Sodium Level 141 mmol/L Potassium Level 3.6 mmol/L Chloride Level 108 mmol/L Carbon Dioxide Level 26 mmol/L Anion Gap 6.0 mmol/L Blood Urea Nitrogen 6 mg/dl Creatinine 0.65 mg/dl Est Creatinine Clear Calc Drug Dose 162.5 ml/min Estimated GFR () 118.3 Estimated GFR (Non- 102.1 BUN/Creatinine Ratio 9.4 Random Glucose 112 mg/dl Calcium Level 8.1 mg/dl Magnesium Level 2.0 mg/dl Assessment and Plan Ms. Barrera is a 52 yr old female who is S/P gastric bypass with melena secondary to an anastomotic ulcer. Plan: 1. Continue Protonix 40mg BID x 2 months then daily. 2. Advance diet. 3. Consider IV iron infusion and B12 injection prior to discharge. 4. Our office will contact here with an appt for OP EGD in 2 months to check for ulcer healing. 4. GI will sign off. Attg add: I reviewed chart and labs, interviewed and examined pt. Pt hgb has had equivocal down wards trend, although pt has not had any overt GIB. Of note , reviewed of her I's and O's shows that she has received almost 15 Liters of fluid over the past 3 days. Asked by hospitalist to comment on the possibility of recurrent GIB. Her mild downwards hgb trend seems more likely to be dilutional, rather than due to bleeding. Would defer endoscopy, continue normal diet, and oral BID PPI. Her Hgb does not need to be checked more than once daily. If stable by tomorrow, ok for d/c. Please call with further questions.
--- NOTE | 2017-08-03 20:44 | Progress Note ---
Medicine Progress Note Date & Time of Visit: Aug 03, 2017 at 20:42. Subjective resting in bed, comfortable no BM yet denies abdominal pain, nausea no chest pain, dyspnea, dizziness no other symptoms Objective Last 8 Hrs Date Time Temp Pulse Resp B/P (MAP) Pulse Ox O2 Delivery O2 Flow Rate FiO2 08/03/17 20:25 36.7 69 18 140/69 (92) 99 Room Air 08/03/17 16:00 Room Air 08/03/17 15:37 62 17 120/62 (81) 98 Room Air Physical Exam: General- oriented x 3, not in distress, speaks in sentences with no effort Head- atraumatic Eyes- anicteric ENT- oropharynx clear Neck- supple, no JVD Lungs- clear breath sounds bilaterally Heart- regular rhythm; no murmur, normal rate Abdomen- normal bowel sounds, soft, nontender Extremities- no pretibial edema, no calf tenderness; peripheral pulses intact Neuro- alert, oriented x 3; no gross focal deficits Skin- warm & dry Laboratory Results: Last 24 Hours Test 08/03/17 05:46 08/03/17 13:06 White Blood Count 4.21 K/uL Red Blood Count 2.49 M/uL Hemoglobin 7.4 g/dL 8.1 g/dL Hematocrit 22.9 % 25.0 % Mean Corpuscular Volume 92.0 fL Mean Corpuscular Hemoglobin 29.7 pg Mean Corpuscular Hemoglobin Concent 32.3 g/dl Platelet Count 228 K/uL Mean Platelet Volume 10.1 fL Neutrophils (%) (Auto) 50.1 % Lymphocytes (%) (Auto) 37.3 % Monocytes (%) (Auto) 7.4 % Eosinophils (%) (Auto) 4.3 % Basophils (%) (Auto) 0.7 % Neutrophils # (Auto) 2.11 K/uL Lymphocytes # (Auto) 1.57 K/uL Monocytes # (Auto) 0.31 K/uL Eosinophils # (Auto) 0.18 K/uL Basophils # (Auto) 0.03 K/uL RDW Standard Deviation 49.4 fL RDW Coefficient of Variation 14.7 % Immature Granulocyte % (Auto) 0.2 % Immature Granulocyte # (Auto) 0.01 K/uL Polychromasia 1+ Sodium Level 141 mmol/L Potassium Level 3.6 mmol/L Chloride Level 108 mmol/L Carbon Dioxide Level 26 mmol/L Anion Gap 6.0 mmol/L Blood Urea Nitrogen 6 mg/dl Creatinine 0.65 mg/dl Est Creatinine Clear Calc Drug Dose 162.5 ml/min Estimated GFR () 118.3 Estimated GFR (Non- 102.1 BUN/Creatinine Ratio 9.4 Random Glucose 112 mg/dl Calcium Level 8.1 mg/dl Magnesium Level 2.0 mg/dl Assessment & Plan Upper GI bleeding: CT ABD suggestive of Acute Pancreatitis: Presented with melena and epigastric abd pain, Hb:9.1 H/O Jejunal Ulcer, Colonic Polys; Recent NSAIDs use S/P EGD: Anastomotic ulcer with visible vessel S/P epinephrine injection and Hemostatic clip placement on 07/21/17 s/p 1 unit pRBC Hg 7.8 completed 3 days of Protonix drip advanced diet to mechanical soft Hg 7.4 additional PRBC ordered Hg now 8.1 Protonix BID may need IV Iron, B12 prior to discharge GI recommendations noted and appreciated Headache: Likely related to morphine resolved Hypokalemia: Replace and monitor Obesity S/P gastric Bypass BMI: 44.9 Insomnia: Trazodone for now Seasonal allergies Stable DVT Px: SCDs: Re: Melena Code Status: Full Code Disposition: possible d/c home in AM Current Inpatient Medications: Current Inpatient Medications Medications (Trade) Dose Ordered Sig/Jeri Route Start Time Stop Time Status Last Admin Dose Admin Sodium Chloride 1,000 ml @ 75 mls/hr [id number] IV 07/30/17 13:45 08/29/17 13:44 08/03/17 09:31 75 MLS/HR Ondansetron HCl (Zofran Inj) 4 mg Q6H PRN IV 07/30/17 13:15 08/29/17 13:14 08/02/17 12:04 4 MG Trazodone HCl (Desyrel Tab) 50 mg HS PO 08/01/17 21:00 08/31/17 20:59 08/02/17 20:15 50 MG Tramadol HCl (Ultram Tab) 50 mg Q4H PRN PO 08/01/17 09:15 08/31/17 09:14 08/03/17 00:39 50 MG Lorazepam (Ativan Tab) 0.5 mg HS PRN PO 08/02/17 01:15 09/01/17 01:14 08/02/17 02:07 0.5 MG Pantoprazole Sodium 40 mg/ Syringe 10 ml @ 5 mls/min DAILY@ IV 08/02/17 21:00 09/01/17 20:59 08/03/17 09:31 5 MLS/MIN
[2017-08-03] MEDS: TRAZODONE HCL 50 MG TAB PO SCH (21:34)
[2017-08-04 01:00] VITALS: BP 109/52
[2017-08-04 04:02] VITALS: BP 107/57; PULSE 66; TEMP 36.6; O2SAT 97
[2017-08-04 07:53] VITALS: BP 136/81; PULSE 68; TEMP 36.6; O2SAT 97
[2017-08-04] MEDS: PANTOprazole INJ 40 MG in SYRINGE 0 ML IV SCH (08:05)
[2017-08-04 08:15] LABS: BUN/CREATININE RATIO 13.7 (10-20); CALCIUM 8.7 mg/dl (8.5-10.1); CREATININE 0.61 mg/dl (0.60-1.20); MAGNESIUM 2.2 mg/dl (1.8-2.4); POTASSIUM 4.3 mmol/L (3.5-5.1)
[2017-08-04 08:37] LABS: BASO % 0.6 %; BASO ABS # 0.03 K/uL (0-0.2); EOS % 3.8 %; IG% 0.2 %; LYMPH % 24.6 %; LYMPH ABS # 1.31 K/uL (1.2-3.4); MEAN CELL VOLUME 91.8 fL (80-100); MEAN CORPUSCULAR HEMOGLOBIN 29.9 pg (25-34); MEAN PLATELET VOLUME 10.4 fL (7.4-10.4); MONO % 7.3 %; NEUT % 63.5 %; PLATELET COUNT 243 K/uL (130-400); RED BLOOD COUNT 2.94 M/uL (4.2-5.4); WHITE BLOOD COUNT 5.32 K/uL (4.8-10.8)
[2017-08-04 08:49] LABS: MEAN CORPUSCULAR HGB CONC 32.6 g/dl (32-36)
[2017-08-04 09:06] LABS: COMPLETE YES
[2017-08-04 11:58] VITALS: BP 132/66; PULSE 65; TEMP 36.8; O2SAT 98
--- NOTE | 2017-08-04 14:50 | Progress Note ---
Medicine Progress Note Date & Time of Visit: Aug 04, 2017 at 14:46. Subjective seen sitting at the chair, comfortable states she feels fine overall denies melena, hematochezia, abdominal pain no chest pain, dyspnea, dizziness no other symptoms states she is ready and would like to be discharged today denies other symptoms Objective Last 8 Hrs Date Time Temp Pulse Resp B/P (MAP) Pulse Ox O2 Delivery O2 Flow Rate FiO2 08/04/17 12:02 Room Air 08/04/17 11:58 36.8 65 18 132/66 (88) 98 Room Air 08/04/17 08:20 Room Air 08/04/17 07:53 36.6 68 18 136/81 (99) 97 Room Air Physical Exam: General- oriented x 3, not in distress, speaks in sentences with no effort Eyes- anicteric Neck- no JVD Lungs- clear breath sounds bilaterally, no rales/wheezes Heart- regular rhythm; no murmur, normal rate Abdomen- normal bowel sounds, soft, nontender Extremities- no pretibial edema, no calf tenderness Neuro- alert, oriented x 3; no gross focal deficits Skin- warm & dry Laboratory Results: Last 24 Hours Test 08/04/17 07:22 08/04/17 08:22 Sodium Level 142 mmol/L Potassium Level 4.3 mmol/L Chloride Level 107 mmol/L Carbon Dioxide Level 27 mmol/L Anion Gap 8.0 mmol/L Blood Urea Nitrogen 8 mg/dl Creatinine 0.61 mg/dl Est Creatinine Clear Calc Drug Dose 174.4 ml/min Estimated GFR () 120.8 Estimated GFR (Non- 104.2 BUN/Creatinine Ratio 13.7 Random Glucose 98 mg/dl Calcium Level 8.7 mg/dl Magnesium Level 2.2 mg/dl Iron Level 18 mcg/dl White Blood Count 5.32 K/uL Red Blood Count 2.94 M/uL Hemoglobin 8.8 g/dL Hematocrit 27.0 % Mean Corpuscular Volume 91.8 fL Mean Corpuscular Hemoglobin 29.9 pg Mean Corpuscular Hemoglobin Concent 32.6 g/dl Platelet Count 243 K/uL Mean Platelet Volume 10.4 fL Neutrophils (%) (Auto) 63.5 % Lymphocytes (%) (Auto) 24.6 % Monocytes (%) (Auto) 7.3 % Eosinophils (%) (Auto) 3.8 % Basophils (%) (Auto) 0.6 % Neutrophils # (Auto) 3.38 K/uL Lymphocytes # (Auto) 1.31 K/uL Monocytes # (Auto) 0.39 K/uL Eosinophils # (Auto) 0.20 K/uL Basophils # (Auto) 0.03 K/uL RDW Standard Deviation 49.6 fL RDW Coefficient of Variation 14.6 % Immature Granulocyte % (Auto) 0.2 % Immature Granulocyte # (Auto) 0.01 K/uL Red Blood Cell Morphology Unremarkable Assessment & Plan Upper GI bleeding secondary to Anastomotic Ulcer CT ABD suggestive of Acute Pancreatitis: Presented with melena and epigastric abd pain, Hb:9.1 H/O Jejunal Ulcer, Colonic Polys; Recent NSAIDs use S/P EGD: Anastomotic ulcer with visible vessel S/P epinephrine injection and Hemostatic clip placement on 07/21/17 s/p 2 unit pRBC Hg improved from 7.4 to 8.8 Iron level 18 completed 3 days of Protonix drip advanced diet to mechanical soft, tolerating well GI recommends repeat EGD in 2 months to check for healing Obesity S/P gastric Bypass BMI: 44.9 Insomnia: Trazodone Seasonal allergies Stable DVT Px: SCDs: Re: Melena Code Status: Full Code Disposition: d/c home ff up with PCP next week ff up with GI in 2-3 weeks and in 2 months for repeat EGD Current Inpatient Medications: Current Inpatient Medications Medications (Trade) Dose Ordered Sig/Jeri Route Start Time Stop Time Status Last Admin Dose Admin Ondansetron HCl (Zofran Inj) 4 mg Q6H PRN IV 07/30/17 13:15 08/29/17 13:14 08/02/17 12:04 4 MG Trazodone HCl (Desyrel Tab) 50 mg HS PO 08/01/17 21:00 08/31/17 20:59 08/03/17 21:34 50 MG Tramadol HCl (Ultram Tab) 50 mg Q4H PRN PO 08/01/17 09:15 08/31/17 09:14 08/03/17 00:39 50 MG Lorazepam (Ativan Tab) 0.5 mg HS PRN PO 08/02/17 01:15 09/01/17 01:14 08/02/17 02:07 0.5 MG Pantoprazole Sodium 40 mg/ Syringe 10 ml @ 5 mls/min DAILY@09 IV 08/02/17 21:00 09/01/17 20:59 08/04/17 08:05 5 MLS/MIN
[2017-08-04] MEDS ORDERED: PANT1TAB48 PO (14:53)
[2017-08-04] MEDS ORDERED: FRRS300 PO (14:53)
--- NOTE | 2017-08-04 15:01 | Discharge Instructions ---
Discharge Instructions Date of Service Aug 04, 2017. Admission Reason for Admission: Melena Discharge Discharge Diagnosis / Problem: UPPER GASTROINTESTINAL BLEED FROM ANASTOMOSIS ULCER Discharge Goals Goal(s): Diagnostic testing, Therapeutic intervention Activity Recommendations Activity Limitations: as noted below Lifting Limitations: until after follow-up appointment Exercise/Sports Limitations: until after follow-up appointment . Instructions / Follow-Up Instructions / Follow-Up PLEASE REVIEW YOUR NEW MEDICATION LIST AND FOLLOW INSTRUCTIONS CAREFULLY. DO NOT TAKE ASPIRIN, NSAID'S: ASPIRIN, IBUPROFEN, NAPROXEN, ETC. CALL PRIMARY CARE PHYSICIAN IF WITH RECURRENCE OF SYMPTOMS, BLACK OR BLOOD STOOLS, ABDOMINAL PAIN, NAUSEA/VOMITING. FOLLOW UP WITH PRIMARY CARE PROVIDER CASTRO CARROLL ON Tuesday AT 1035 AM. FOLLOW UP WITH BUSINESS RULES DEVELOPER DR. YEBOAH IN 2-3 WEEKS. TEL. NO. Current Hospital Diet Patient's current hospital diet: Regular Diet, Low Fat Diet, Low Fiber Diet Discharge Diet Recommended Diet: Low Fiber Diet, Low Fat Diet Procedures Procedures Performed: Upper endoscopy Pending Studies Studies pending at discharge: yes List of pending studies: REPEAT BLOOD WORK C/O PRIMARY CARE PHYSICIAN Medical Emergencies . Who to Call and When: Medical Emergencies: If at any time you feel your situation is an emergency, please call 911 immediately. . Non-Emergent Contact Non-Emergency issues call your: Primary Care Provider, [employer] Software Engineer Call Non-Emergent contact if: you have a fever, your pain is not controlled, your pain is worsening, you have any medication questions . . "Provider Documentation" section prepared by Jem Poe. . VTE Core Measure Inpt VTE Proph given/why not?: SCD's
--- NOTE | 2017-08-04 15:05 | Discharge Summary ---
Discharge Summary Date of Service Aug 04, 2017. Discharge Summary Admission Date: Jul 30, 2017 at 13:07 Discharge Date: Aug 04, 2017 Discharge Disposition: Home Principal Diagnosis: Upper GI bleeding secondary to Anastomotic Ulcer Secondary Diagnoses/Problems: Please refer to hospital course below. Procedures: DICTATED BY: Juli Peña DO Procedure Date: 07/31/2017 8:54 AM Procedure: Upper GI endoscopy Indications: Melena Medicines: General Anesthesia Complications: No immediate complications. Estimated blood loss: Minimal. Estimated Blood Loss: Estimated blood loss was minimal. Procedure: Pre-Anesthesia Assessment: - Prior to the procedure, a History and Physical was performed, and patient medications, allergies and sensitivities were reviewed. The patient's tolerance of previous anesthesia was reviewed. - The risks and benefits of the procedure and the sedation options and risks were discussed with the patient. All questions were answered and informed consent was obtained. - Patient identification and proposed procedure were verified prior to the procedure by the physician, the nurse and the facilities assistant. The procedure was verified in the procedure room. - Pre-procedure physical examination revealed no contraindications to sedation. - ASA Grade Assessment: IV - A patient with severe systemic disease that is a constant threat to life. - After reviewing the risks and benefits, the patient was deemed in satisfactory condition to undergo the procedure. - The anesthesia plan was to use general anesthesia. - Immediately prior to administration of medications, the patient was re-assessed for adequacy to receive sedatives. - The heart rate, respiratory rate, oxygen saturations, blood pressure, adequacy of pulmonary ventilation, and response to care were monitored throughout the procedure. - The physical status of the patient was re-assessed after the procedure. After obtaining informed consent, the endoscope was passed under direct vision. Throughout the procedure, the patient's blood pressure, pulse, and oxygen saturations were monitored continuously. The scope was introduced through the mouth, and advanced to the jejunum. The upper GI endoscopy was accomplished without difficulty. The patient tolerated the procedure well. Findings: The examined esophagus was normal. The Z-line was regular and was found 35 cm from the incisors. Evidence of a gastric bypass was found. A gastric pouch with a normal size was found. The staple line appeared intact. The gastrojejunal anastomosis was characterized by healthy appearing mucosa. This was traversed. A visble vessel with a small ulcer was seen in the efferent limb just distal to the anastomosis. The area was successfully injected with 2 mL of a 1:10,000 solution of epinephrine for hemostasis. One clip (Cook Instinct, MRI conditional) was successfully placed. Coagulation for hemostasis using 7 bur[place]ian bipolar probe was successful. There was no bleeding at the end of the procedure Impression: - Normal esophagus. - Z-line regular, 35 cm from the incisors. - Gastric bypass with a normal-sized pouch and intact staple line. - Visible vessel noted just past the anstomosis with a small ulcer adjacent to it. Injected with epinephrine. Hemostatic clip place and treated with bipolar cautery. - No specimens collected. Recommendation: - [facility] to [facility] care. - Observe patient's clinical course following today's procedure with therapeutic intervention. - Continue Protonix (pantoprazole): 8 mg/hr IV by continuous infusion for 3 days. - May have a liquid diet today, then advance as tolerated. - If rebleeding occurs would refer for angiography. CT OF THE ABDOMEN AND PELVIS WITHOUT CONTRAST CLINICAL HISTORY: Epigastric pain. Melena. COMPARISON STUDY: CT of the abdomen and pelvis April 20, 2010. TECHNIQUE: Axial images of the abdomen and pelvis were obtained without IV contrast. Images were reviewed in the axial, sagittal, and coronal planes. A dose lowering technique was utilized adhering to the principles of ALARA. FINDINGS: Evaluation of the abdomen and pelvis is suboptimal as unenhanced exam. Postsurgical findings involving the stomach are noted. There is no evidence for a bowel obstruction. Unenhanced images of the liver, spleen and adrenal glands are noted. There is equivocal minimal peripancreatic infiltration. There are no peripancreatic fluid collections. There is no hydronephrosis. The appendix is normal. Sensitivity for detection of mucosal lesions is significantly diminished on this unenhanced CT. No suspicious osseous lesion is present. There is no pneumatosis, free air or portal venous gas. IMPRESSION: 1. Equivocal minimal peripancreatic infiltration which could be correlated with biochemical evidence for acute pancreatitis. 2. Status post gastric bypass. No bowel obstruction. Normal appendix. Consultations: Laundry Attendant Dr. Peña/ Dr. Yeboah Pending Studies/Follow-Up: Please refer to hospital course below. Medication Reconciliation New Medications: Ferrous Sulfate (Ferrous Sulfate) 325 Mg Tab 1 TAB PO BID for 30 Days, #60 TABS 2 Refills Pantoprazole (Protonix) 40 Mg Tab 40 MG PO BID for 30 Days, #60 TAB 2 Refills take 30 minutes before breakfast and supper Continued Medications: Glucosamine Sulfate (Glucosamine) 1,000 Mg Tab 1000 MG PO DAILY, TAB Multivitamin (Multivitamin) Tab 1 TAB PO DAILY, TAB Trazodone Hcl (Trazodone) 50 Mg Tab 50 MG PO HS, TAB Admission Information HPI (per Admitting provider): Patient is a 52 yr female with PMH of Gastrojejunal Ulcer disease, colon Polys, Obesity S/P gastric Bypass, Insomnia, Seasonal allergies and other problems presents with history of black tarry stools since Tuesday. Reports having 1-2 BMs which are dark but denies any bright red blood or diarrhea. Reports associated Epigastric abdominal pain which is 5/10, non radiating, burning like , which worsens with food intake and temporarily improves with cold water intake. She recently had flu like symptoms and admits to take over the counter NSAIDs.She tried gaviscon and rolaids which did not relive her symptoms. She was previously on PPI but currently off them. Also reports some dizziness with ambulation. Currently denies any chest pain, SOB, nausea, vomiting, headache, dysuria, fever, chills. No history of being on blood thinners, aspirin. Reports that she follows with insulation packer and gets colonoscopy as she had colonic polyps. Physical Exam (per Admitting): General Appearance: no apparent distress, + obese Head: normocephalic, atraumatic Eyes: normal inspection, PERRL, EOMI, sclerae normal ENT: normal ENT inspection, hearing grossly normal Neck: supple, trachea midline Respiratory/Chest: chest non-tender, lungs clear, normal breath sounds, no respiratory distress, no accessory muscle use Cardiovascular: regular rate, rhythm, no edema, no murmur Abdomen/GI: normal bowel sounds, soft, + tenderness (Epigastric region), + pertinent finding (Obese, Surgical scars on abdomen noted) Back: normal inspection, + pertinent finding (Lower back mild tender) Extremities/Musculoskelatal: normal inspection, no pedal edema Neurologic/Psych: opener tender II-XII nml as tested, no motor/sensory deficits, alert , normal mood/affect, oriented x 3 Skin: normal color, warm/dry Hospital Course Upper GI bleeding secondary to Anastomotic Ulcer History of Gastric Bypass Anemia, likely secondary to Acute Blood Loss from Upper GI Bleed, Iron Deficiency Presented with melena and epigastric abd pain, Hb:9.1 H/O Jejunal Ulcer, Colonic Polys; Recent NSAIDs use 07/21/17: S/P EGD: Anastomotic ulcer with visible vessel S/P epinephrine injection and Hemostatic clip placement s/p 2 unit pRBC Hg improved from 7.4 to 8.8 Iron level 18 completed 3 days of Protonix drip advanced diet to mechanical soft, tolerating well GI recommends repeat EGD in 2 months to check for healing repeat CBC, Iron as outpatient full anemia work up as outpatient Obesity S/P gastric Bypass BMI: 44.9 Insomnia: Trazodone Seasonal allergies Stable Disposition: d/c home ff up with PCP next week ff up with GI in 2-3 weeks and in 2 months for repeat EGD Total time spent on discharge = 30 minutes This includes examination of the patient, discharge planning, medication reconciliation, and communication with other providers. Discharge Instructions Discharge Instructions Date of Service Aug 04, 2017. Admission Reason for Admission: Melena Discharge Discharge Diagnosis / Problem: UPPER GASTROINTESTINAL BLEED FROM ANASTOMOSIS ULCER Discharge Goals Goal(s): Diagnostic testing, Therapeutic intervention Activity Recommendations Activity Limitations: as noted below Lifting Limitations: until after follow-up appointment Exercise/Sports Limitations: until after follow-up appointment . Instructions / Follow-Up Instructions / Follow-Up PLEASE REVIEW YOUR NEW MEDICATION LIST AND FOLLOW INSTRUCTIONS CAREFULLY. DO NOT TAKE ASPIRIN, NSAID'S: ASPIRIN, IBUPROFEN, NAPROXEN, ETC. CALL PRIMARY CARE PHYSICIAN IF WITH RECURRENCE OF SYMPTOMS, BLACK OR BLOOD STOOLS, ABDOMINAL PAIN, NAUSEA/VOMITING. FOLLOW UP WITH PRIMARY CARE PROVIDER CASTRO CARROLL ON Tuesday AT 1035 AM. FOLLOW UP WITH HYDRAULIC PILE HAMMER OPERATOR DR. YEBOAH IN 2-3 WEEKS. TEL. NO. Current Hospital Diet Patient's current hospital diet: Regular Diet, Low Fat Diet, Low Fiber Diet Discharge Diet Recommended Diet: Low Fiber Diet, Low Fat Diet Procedures Procedures Performed: Upper endoscopy Pending Studies Studies pending at discharge: yes List of pending studies: REPEAT BLOOD WORK C/O PRIMARY CARE PHYSICIAN Medical Emergencies . Who to Call and When: Medical Emergencies: If at any time you feel your situation is an emergency, please call 911 immediately. . Non-Emergent Contact Non-Emergency issues call your: Primary Care Provider, Laundry Attendant Call Non-Emergent contact if: you have a fever, your pain is not controlled, your pain is worsening, you have any medication questions . . "Provider Documentation" section prepared by Jem Poe. . VTE Core Measure Inpt VTE Proph given/why not?: SCD's
[2017-08-04 15:29] VITALS: BP 132/66; PULSE 65; TEMP 36.8; O2SAT 98
== END 2017-08-04 15:56 | disposition home or self-care (01) | DRG 378 ==
LOC: C.EDB 11:13 → C.2E 13:07 → ENRESERV 13:38
PROVIDERS: ADMIT Internal Medicine; ATTEND Internal Medicine
PROC: 0W3P8ZZ Control Bleeding in Gastrointestinal Tract, Via Natural or Artificial Opening Endoscopic (ICD-10-PCS; principal; 2017-07-31 06:52)
DX: K28.4 Chronic or unspecified gastrojejunal ulcer with hemorrhage (principal); D62 Acute posthemorrhagic anemia; Z68.42 Body mass index [BMI] 45.0-49.9, adult; D50.9 Iron deficiency anemia, unspecified; G44.40 Drug-induced headache, not elsewhere classified, not intractable; T40.2X5A Adverse effect of other opioids, initial encounter; Y92.230 Patient room in hospital as the place of occurrence of the external cause; E87.6 Hypokalemia; J30.2 Other seasonal allergic rhinitis; M19.90 Unspecified osteoarthritis, unspecified site; G47.00 Insomnia, unspecified; F41.9 Anxiety disorder, unspecified; E66.9 Obesity, unspecified; Z98.84 Bariatric surgery status; Z86.010 Personal history of colon polyps; Z87.891 Personal history of nicotine dependence; Z79.899 Other long term (current) drug therapy

== ENCOUNTER → 2017-09-26 | Day surgery (SDC) | payer OTHER ==
[2017-09-20 13:16] VITALS: Ht 179.1 cm; Wt 145.0 kg
[~2017-09-26] VITALS: Ht 179.1 cm; Wt 145.0 kg
[~2017-09-26] MED LIST changes: +AMT25 PO; +FENTANYL CITRATE INJ 50 MCG/1 ML 2 ML VIAL ONE; +FRRS300 PO; +KETAMINE HCL INJ 50 MG/ML 10 ML VIAL ONE; +LIDOCAINE HCL 2% 2 ML VIAL (20MG/ML) ONE; -MELA1TAB5 PO; +MIDAZOLAM HCL 1 MG/ML 2ML VIAL ONE; +MISCTAB78 PO; +MULT-506 PO; +ONDANSETRON INJ 2 MG/ML 2 ML VIAL IV PRN; +PANT1TAB3 PO; +PROPOFOL IV EMULSION 10 MG/ML 20 ML VIAL IV ONE; +SODIUM CHLORIDE 0.9% INJ 10 ML VIAL ONE
--- NOTE | 2017-09-26 08:10 | Endo History and Physical ---
History & Physical Date of Service: Sep 26, 2017. Chief Complaint: Follow up for an anastomotic ulcer Referring Physician: History of Present Illness Patient presents for follow-up upper endoscopy to evaluate and marginal gastric ulcer. She had a gastric bypass done about 10 years ago and presented with an upper GI bleed 3 months ago. She notes that her symptoms have resolved. Past Medical History Other Depression Anxiety Prior gastric bypass Past Surgical History Hx Cardiac Surgery: No Hx Internal Defibrillator: No Hx Pacemaker: No Hx Abdominal Surgery: Yes (ZAHRA, JOANNE, GASTRIC BYPASS, incisional hernia repair X 2, ) Hx of Implantable Prosthesis: No Hx Post-Op Nausea and Vomiting: No Hx Cancer Surgery: No Hx Thoracic Surgery: No Hx Orthopedic: No Hx Urinary Tract Surgery: No Gastric bypass Cholecystectomy Family History None Social History Smoking Status: Former Smoker Hx Substance Use: No Hx Alcohol Use: Yes (OCCASSIONALLY) Allergies Coded Allergies: Aspirin (Verified Allergy, Mild, BLEEDING,STOMACH PAINS, 09/20/17) Meperidine (Verified Adverse Reaction, Unknown, SEVERE N/V, 09/20/17) Current Medications Reported Home Medications Medications Dose Route/Sig Max Daily Dose Days Date Category Dose Instructions Amitriptyline HCl 25 Mg Tab Mg PO HS 09/26/17 Reported Osteo Bi-Flex Advanced Do (Misc Natural Products) 1 Tab Tab 1 Tab PO QAM 09/20/17 Reported Ferrous Sulfate 325 Mg Tab 1 Tab PO BID 30 08/04/17 Rx Protonix (Pantoprazole) 40 Mg Tab 40 Mg PO BID 30 08/04/17 Rx take 30 minutes before breakfast and supper Multivitamin (Multivitamins) Tab 1 Tab PO DAILY 07/30/17 Reported Trazodone (Trazodone HCl) 50 Mg Tab 50 Mg PO HS 10/13/16 Reported Vital Signs Weight (Kilograms): 145 Height (Feet): 5 Height (Inches): 10.5 Physical Exam General Appearance: no apparent distress Respiratory/Chest: Auscultation: breath sounds normal Cardiovascular: Heart Auscultation: RRR Abdomen: Inspection & Palpation: soft Assessment and Plan Upper endoscopy to evaluate a history of a gastric ulcer. We have discussed the risks to include bleeding, infection, perforation and pain.
--- NOTE | 2017-09-26 08:47 | Discharge Instructions ---
Endoscopy Patient Instructions Date / Procedure(s) Performed Sep 26, 2017. EGD Allergy Information Coded Allergies: Aspirin (Verified Allergy, Mild, BLEEDING,STOMACH PAINS, 09/20/17) Meperidine (Verified Adverse Reaction, Unknown, SEVERE N/V, 09/20/17) Discharge Date / Findings Sep 26, 2017. Gastric bypass Healed ulceration Medication Instructions Restart Stopped Medication(s): Reported Home Medications Medications Dose Route/Sig Max Daily Dose Days Date Category Dose Instructions Amitriptyline HCl 25 Mg Tab Mg PO HS 09/26/17 Reported Osteo Bi-Flex Advanced Do (Misc Natural Products) 1 Tab Tab 1 Tab PO QAM 09/20/17 Reported Ferrous Sulfate 325 Mg Tab 1 Tab PO BID 30 08/04/17 Rx Protonix (Pantoprazole) 40 Mg Tab 20 Mg Daily 30 08/04/17 Rx take 30 minutes before breakfast Multivitamin (Multivitamins) Tab 1 Tab PO DAILY 07/30/17 Reported Trazodone (Trazodone HCl) 50 Mg Tab 50 Mg PO HS 10/13/16 Reported Provider Instructions Activity Restrictions - No exercising or heavy lifting for 24 hours. - Do not drink alcohol the day of the procedure. - Do not drive a car or operate machinery until the day after the procedure. - Do not make any important decisions or sign important papers in 24 hours after the procedure. Following Day: - Return to full activity which may include returning to work/school. Diet Start your diet with liquids and light foods (jello, soup, juice, toast). Then eat your usual diet if not nauseated. Treatment For Common After Affects For mild abdominal pain, bloating, or excessive gas: - Rest - Eat lightly - Lie on right side Follow-Up Information Follow-up with Dr. Ryan Ferro as scheduled Reduce protonix to 20 mg per day Anesthesia Information What You Should Know You have had a procedure that required some medicine to reduce anxiety and discomfort. This treatment is called moderate sedation. After receiving the treatment, you may be sleepy, but you will be able to breathe on your own. The effects of the treatment may last for several hours. Follow these instructions along with Activity/Diet recommendations noted above: * Do NOT do anything where dizziness or clumsiness would be dangerous. * Rest quietly at home today, then you can be up and about tomorrow. * Have a responsible person stay with you the rest of today. * You may have had an I.V. today. If so, you may take the dressing off later today. Recommendations Call your doctor if: * Trouble breathing * Continuous vomiting for more than 24 hours * Temperature above 101 degrees * Severe abdominal pain or bloating * Pain not relieved by pain medicine ordered * There is increased drainage or redness from any incision * A large amount of rectal bleeding greater than 2-3 tablespoons. (If you had a polyp/s removed or have hemorrhoids, a small amount of blood - from the rectum is to be expected.) * You have any unanswered questions or concerns. IN THE EVENT OF A SERIOUS EMERGENCY, GO TO THE NEAREST EMERGENCY ROOM Your discharge instructions were prepared by provider Juli Peña. Patient Instructions Signature Page Linda Barrera Patient (or Guardian) Signature/Date: I have read and understand the instructions given to me by my caregivers. Caregiver/RN/Doctor Signature/Date: The above-named patient and/or guardian has received patient instructions on this date. + Original Patient Signature Page (only) stays with chart. Please make copy for patient.
--- NOTE | 2017-09-26 08:58 | Anesthesiology Progress Note ---
Anesthesia Post Op Note Date & Time Sep 26, 2017 at 08:58 Vital Signs Pain Intensity: 0 Vital Signs Past 12 Hours Date Time Temp Pulse Resp B/P (MAP) Pulse Ox O2 Delivery O2 Flow Rate FiO2 09/26/17 08:48 72 20 121/68 (85) 95 Room Air 09/26/17 08:10 36.3 74 20 144/74 (97) 97 Room Air Notes Mental Status: alert / awake / arousable, participated in evaluation Pt Amnestic to Procedure: Yes Nausea / Vomiting: adequately controlled Pain: adequately controlled Airway Patency, RR, SpO2: stable & adequate BP & HR: stable & adequate Hydration State: stable & adequate Anesthetic Complications: no major complications apparent
--- NOTE | 2017-09-26 09:12 | GI REPORT ---
Procedure Date: 09/26/2017 8:22 AM Procedure: Upper GI endoscopy Indications: Follow-up of acute peptic ulcer with hemorrhage Medicines: Monitored Anesthesia Care Complications: No immediate complications. Estimated blood loss: Minimal. Estimated Blood Loss: Estimated blood loss was minimal. Procedure: Pre-Anesthesia Assessment: - Prior to the procedure, a History and Physical was performed, and patient medications, allergies and sensitivities were reviewed. The patient's tolerance of previous anesthesia was reviewed. - The risks and benefits of the procedure and the sedation options and risks were discussed with the patient. All questions were answered and informed consent was obtained. - Patient identification and proposed procedure were verified prior to the procedure by the physician, the nurse and the clothes shaker. The procedure was verified in the procedure room. - Pre-procedure physical examination revealed no contraindications to sedation. - ASA Grade Assessment: III - A patient with severe systemic disease. - After reviewing the risks and benefits, the patient was deemed in satisfactory condition to undergo the procedure. - The anesthesia plan was to use general anesthesia. - Immediately prior to administration of medications, the patient was re-assessed for adequacy to receive sedatives. - The heart rate, respiratory rate, oxygen saturations, blood pressure, adequacy of pulmonary ventilation, and response to care were monitored throughout the procedure. - The physical status of the patient was re-assessed after the procedure. After obtaining informed consent, the endoscope was passed under direct vision. Throughout the procedure, the patient's blood pressure, pulse, and oxygen saturations were monitored continuously. The On-site loaner was introduced through the mouth, and advanced to the jejunum. The upper GI endoscopy was accomplished without difficulty. The patient tolerated the procedure well. Findings: The examined esophagus was normal. The Z-line was regular and was found 39 cm from the incisors. Evidence of a gastric bypass was found. A gastric pouch with a normal size was found. The staple line appeared intact. The gastrojejunal anastomosis was characterized by healthy appearing mucosa. This was traversed. The [id number] limb was characterized by healthy appearing mucosa. The [id number] limb was not examined as it could not be reached. Biopsies were taken with a cold forceps for histology. Estimated blood loss was minimal. Impression: - Normal esophagus. - Z-line regular, 39 cm from the incisors. - Gastric bypass with a normal-sized pouch and intact staple line. Gastrojejunal anastomosis characterized by healthy appearing mucosa. Biopsied. Recommendation: - Discharge patient to home (ambulatory). - Advance diet as tolerated today. - Use Protonix (pantoprazole) 20 mg PO daily indefinitely. Juli Peña D.O. Juli Peña, 09/26/2017 8:54:06 AM This report has been signed electronically. Note Initiated On: 09/26/2017 8:22 AM I attest to the content of the Intraoperative Record and orders documented therein, exceptions below
[2017-09-26 09:21] VITALS: BP 138/78; PULSE 65; O2SAT 100
== END | disposition home or self-care (01) ==
LOC: C.GI 07:48
PROVIDERS: ATTEND Internal Medicine Gastroenterology
DX: Z09 Encounter for follow-up examination after completed treatment for conditions other than malignant neoplasm (principal); K21.9 Gastro-esophageal reflux disease without esophagitis; G47.33 Obstructive sleep apnea (adult) (pediatric); Z98.84 Bariatric surgery status; Z90.49 Acquired absence of other specified parts of digestive tract; Z98.890 Other specified postprocedural states; Z87.891 Personal history of nicotine dependence; E66.01 Morbid (severe) obesity due to excess calories; Z68.42 Body mass index [BMI] 45.0-49.9, adult